=== PATIENT | female | born 1995 | race American Indian/Alaskan Native ===

== ENCOUNTER 2021-12-13 07:42 | Inpatient (IN) | payer OTHER ==
[2021-12-13 08:27] LABS: Bilirubin,Urine NEG (Negative); Blood,Urine LG (Negative); Color,Urine Straw (Yellow); Urobilinogen,Urine < 2.0 mg/dL (<2.0)
[2021-12-13 08:28] LABS: Mucus,Urine FEW /HPF
[2021-12-13] MEDS ORDERED: HYDROcodone/ACETAMINOPHEN 5-325 MG TAB PO ONE (15:01)
[2021-12-13] MEDS ORDERED: SODIUM CHLORIDE 0.9% 1000 ML 1,000 ML IV ONE ×3 (15:01→18:05)
[2021-12-13 15:59] LABS: Basophils # (Auto) 0.1 K/mm3 (0.0-0.1); Basophils % (Auto) 0.6 % (0.0-1.8); Eosinophils # (Auto) 0.1 K/mm3 (0.0-0.4); Eosinophils % (Auto) 1.3 % (0.0-4.3); Hematocrit 46.6 % (30.3-42.9); Hemoglobin 15.3 gm/dl (10.1-14.3); Lymphocytes # (Auto) 2.5 K/mm3 (1.2-5.4); Mean Corpuscular HGB Conc 33 % (30-34); Mean Corpuscular Volume 85 fl (79-97); Monocytes # (Auto) 0.6 K/mm3 (0.0-0.8); Monocytes % (Auto) 5.3 % (0.0-7.3); Platelet Count 280 K/mm3 (140-440); Red Blood Count 5.48 M/mm3 (3.65-5.03); Red Cell Distribution Width 12.9 % (13.2-15.2)
--- NOTE | 2021-12-13 16:18 | Emergency Department Report ---
ED General Adult HPI - General Chief complaint: Extremity Injury, Lower Stated complaint: CAN'T BEND LEG/ BLOOD IN URINE Time Seen by Provider: 12/13/21 15:01 Source: patient Mode of arrival: Ambulatory Limitations: No Limitations - History of Present Illness Initial comments: Patient presents with complaints of bilateral thigh pain x2 days. She states the pain began after an intense cycling workout. Ibuprofen is not helping with her pain. She rates the pain as a 7/10 in severity. No swelling of the legs or difficulty with breathing per patient. NKDA per patient. -: Sudden Severity scale (0 -10): 7 Consistency: constant Improves with: none Worsens with: movement Associated Symptoms: denies other symptoms - Related Data Allergies Allergy/AdvReac Type Severity Reaction Status Date / Time No Known Allergies Allergy Unverified 12/13/21 07:43 ED Review of Systems ROS: Stated complaint: CAN'T BEND LEG/ BLOOD IN URINE Other details as noted in HPI Constitutional: denies: chills, fever, malaise Respiratory: denies: cough, shortness of breath Cardiovascular: denies: chest pain Gastrointestinal: denies: abdominal pain Musculoskeletal: denies: joint swelling, arthralgia Skin: denies: rash, lesions, change in color Neurological: denies: numbness, paresthesias Hematological/Lymphatic: denies: swollen glands ED Past Medical Hx - Past Medical History Previous Medical History?: Yes Additional medical history: Umbilical hernia, right toe 5th digit bone spur - Surgical History Past Surgical History?: Yes Additional Surgical History: Umbilical hernia, Right toe 5th digit bone shaving ED Physical Exam - General Limitations: No Limitations General appearance: alert, in no apparent distress - Head Head exam: Present: atraumatic, normocephalic - Eye Eye exam: Present: normal appearance - Respiratory Respiratory exam: Present: normal lung sounds bilaterally. Absent: respiratory distress - Cardiovascular Cardiovascular Exam: Present: normal rhythm, tachycardia - Extremities Exam Extremities exam: Present: other (bilateral ttp to anterior thigh muscles witho ut swelling, erythema, or decreased sensation; ROMN is normal. Color is normal. Pedal pulses are normal) - Neurological Exam Neurological exam: Present: alert, oriented X3. Absent: normal gait (antalgic) - Psychiatric Psychiatric exam: Present: normal affect, normal mood - Skin Skin exam: Present: warm, dry, intact, normal color. Absent: rash ED Course Vital Signs 12/13/21 07:44 Temperature 99.6 F Pulse Rate 121 H Respiratory 20 Rate Blood Pressure 151/97 [Right] O2 Sat by Pulse 98 Oximetry ED Medical Decision Making - Lab Data Result diagrams: 12/13/21 15:16 12/13/21 15:16 Lab Results 12/13/21 12/13/21 12/13/21 Range/Units 15:16 15:16 Unknown WBC 10.8 (4.5-11.0) K/mm3 RBC 5.48 H (3.65-5.03) M/mm3 Hgb 15.3 H (10.1-14.3) gm/dl Hct 46.6 H (30.3-42.9) % MCV 85 (79-97) fl MCH 28 (28-32) pg MCHC 33 (30-34) % RDW 12.9 L (13.2-15.2) % Plt Count 280 (140-440) K/mm3 Lymph % (Auto) 23.0 (13.4-35.0) % [place] % (Auto) 5.3 (0.0-7.3) % Eos % (Auto) 1.3 (0.0-4.3) % Baso % (Auto) 0.6 (0.0-1.8) % Lymph # (Auto) 2.5 (1.2-5.4) K/mm3 [place] # (Auto) 0.6 (0.0-0.8) K/mm3 Eos # (Auto) 0.1 (0.0-0.4) K/mm3 Baso # (Auto) 0.1 (0.0-0.1) K/mm3 Seg Neutrophils % 69.8 (40.0-70.0) % Seg Neutrophils # 7.6 (1.8-7.7) K/mm3 Sodium 139 (137-145) mmol/L Potassium 4.3 (3.6-5.0) mmol/L Chloride 101.2 (98-107) mmol/L Carbon Dioxide 25 (22-30) mmol/L Anion Gap 17 mmol/L BUN 7 (7-17) mg/dL Creatinine 0.6 (0.6-1.2) mg/dL Estimated GFR > 60 ml/min BUN/Creatinine Ratio 12 % Glucose 84 (65-100) mg/dL Calcium 10.0 (8.4-10.2) mg/dL Total Bilirubin 0.30 (0.1-1.2) mg/dL AST 1707 H (5-40) units/L ALT 549 H (7-56) units/L Alkaline Phosphatase 79 (35-129) units/L Total Creatine Kinase 00144 H (30-135) units/L Total Protein 7.7 (6.3-8.2) g/dL Albumin 5.0 (3.9-5) g/dL Albumin/Globulin Ratio 1.9 % Urine Color Straw (Yellow) Urine Turbidity Clear (Clear) Urine pH 7.0 (5.0-7.0) Ur Specific [place] 1.001 L (1.003-1.030) Urine Protein 30 mg/dl (Negative) mg/dL Urine Glucose (UA) Neg (Negative) mg/dL Urine Ketones Neg (Negative) mg/dL Urine Blood Lg (Negative) Urine Nitrite Neg (Negative) Urine Bilirubin Neg (Negative) Urine Urobilinogen < 2.0 (<2.0) mg/dL Ur Leukocyte Esterase Neg (Negative) Urine WBC (Auto) 1.0 (0.0-6.0) /HPF Urine RBC (Auto) 1.0 (0.0-6.0) /HPF U Epithel Cells (Auto) < 1.0 (0-13.0) /HPF Urine Mucus Few /HPF - Medical Decision Making Patient presents with complaints of bilateral thigh pain x2 days. She states the pain began after an intense cycling workout. Ibuprofen is not helping with her pain. She rates the pain as a 7/10 in severity. No swelling of the legs or difficulty with breathing per patient. NKDA per patient. CK is elevated at approximately 78,000 and AST and ALT are significantly elevated. Patient denies any abdominal pain, Tylenol use, or alcohol use. She reports a history of minimal liver dysfunction and states she had an ultrasound performed that was normal last year of her liver. Patient was able to show me her labs and her AST and ALT were just mildly elevated. Patient given 1 L saline and [place] 5 mg. Heart rate improved to 92 on recheck. Discussed patient with Dr. Wu, [facility] who will admit for rhabdomyolysis. Critical care attestation.: If time is entered above; I have spent that time in minutes in the direct care of this critically ill patient, excluding procedure time. ED Disposition Clinical Impression: Rhabdomyolysis Disposition: 09 ADMITTED INPATIENT Is pt being admited?: Yes Condition: Stable Instructions: Rhabdomyolysis Referrals: KATY VALENTINO MD [Primary Care Provider] - 3-5 Days
[2021-12-13 16:19] LABS: Alanine Aminotransferase 549 units/L (7-56); Blood Urea Nitrogen 7 mg/dL (7-17); Hemolysis Index 5
[2021-12-13 16:20] LABS: BUN/Creatinine Ratio 12
[2021-12-13] MEDS ORDERED: HYDROmorphone 0.5 MG/0.5 ML INJ IV PRN (17:29)
[2021-12-13] MEDS ORDERED: oxyCODONE /ACETAMINOPHEN 5-325MG TAB PO PRN (17:29)
[2021-12-13] MEDS ORDERED: ONDANSETRON 4 MG/2 ML INJ IV PRN (17:29)
[2021-12-13] MEDS ORDERED: MORPHINE 2 MG/1 ML INJ IV PRN (17:29)
[2021-12-13] MEDS ORDERED: METOCLOPRAMIDE 10 MG/2 ML INJ IV PRN (17:29)
[2021-12-13] MEDS ORDERED: ACETAMINOPHEN 325 MG TAB PO PRN (17:29)
--- NOTE | 2021-12-13 17:47 | History and Physical Report ---
History of Present Illness Date of examination: 12/13/21 Date of admission: 12/13/2021 Chief complaint: Severe muscle pain both lower extremities for 3 days since 12/10/2021 History of present illness: 26-year-old female with no significant past medical history joined cycling class once weekly for 3 weeks. On her first day of cycling class which was Wednesday--12/09/2021--she underwent 45 minutes of intense cycling session. From the next day patient had pain in both the thighs which is worsened over the last 48 hours making it difficult to walk. Patient able to walk but unable to flex at the knees and also at the hips. Patient has tight anterior thigh muscles. Pain is about 6-7 on a scale of 1-10. Any movement is an exacerbating factor. Rest is a relieving factor. No shortness of breath. No discoloration of the both lower extremities. Thigh is swollen. - Past Medical History -- Umbilical hernia --right toe 5th digit bone spur - Surgical History --Umbilical hernia, --Right toe 5th digit bone shaving x-rays not -- Family history --unavailable -social history --does not smoke or use alcohol or drugs Review of Systems ROS: Constitutional severe muscle aches in both lower extremities and difficulty walking HEENT no sore throat no post nasal drip no diplopia Neck no neck stiffness no lymph gland enlargement Chest and lungs no shortness of breath cough or wheezing CVS no chest pain no diaphoresis no palpitations GI no nausea no vomiting no diarrhea Genitourinary system no dysuria no flank pain Musculoskeletal system severe muscle pains in both lower extremities especially anterior thighs and legs [employer] no syncope no seizures Skin no rash no itching Psychiatric no depression no homicidal or suicidal tendencies Hematologic no lymphedema or bruising Endocrine no polydipsia no polyuria no cold intolerance no heat intolerance Medications and Allergies Allergies Allergy/AdvReac Type Severity Reaction Status Date / Time No Known Allergies Allergy Unverified 12/13/21 07:43 Active Meds: Active Medications Sodium Chloride (Nacl 0.9% 1000 Ml) 1,000 mls @ 999 mls/hr IV BOLUS ONE Stop: 12/13/21 17:58 Exam - Constitutional Vitals: Temp Pulse Resp BP Pulse Ox 99.6 F 121 H 20 151/97 98 12/13/21 07:44 12/13/21 07:44 12/13/21 07:44 12/13/21 07:44 12/13/21 07:44 General appearance: Present: no acute distress, well-nourished - EENT Eyes: Present: PERRL ENT: hearing intact, clear oral mucosa - Neck Neck: Present: supple, normal ROM - Respiratory Respiratory effort: normal Respiratory: bilateral: CTA - Cardiovascular Heart rate: 121 Rhythm: regular Heart Sounds: Present: S1 & S2. Absent: rub, click - Extremities Extremities: no ischemia, pulses intact, pulses symmetrical, No edema, abnormal (Tenderness present over both the thighs) Extremity abnormal: tenderness (Tenderness over both anterior thighs), other (Able to get up and walk but slowly) Peripheral Pulses: within normal limits - Abdominal General gastrointestinal: Present: soft, non-tender, non-distended, normal bowel sounds Female genitourinary: Present: normal - Integumentary Integumentary: Present: clear, warm, dry - Musculoskeletal Musculoskeletal: gait normal, strength equal bilaterally - Psychiatric Psychiatric: appropriate mood/affect, intact judgment & insight - Neurologic Neurologic: CNII-XII intact, moves all extremities - Allied Health Allied health notes reviewed: nursing, case management Results - Labs CBC & Chem 7: 12/13/21 15:16 12/13/21 15:16 Labs: Laboratory Last Values WBC 10.8 K/mm3 (4.5-11.0) 12/13/21 15:16 RBC 5.48 M/mm3 (3.65-5.03) H 12/13/21 15:16 Hgb 15.3 gm/dl (10.1-14.3) H 12/13/21 15:16 Hct 46.6 % (30.3-42.9) H 12/13/21 15:16 MCV 85 fl (79-97) 12/13/21 15:16 MCH 28 pg (28-32) 12/13/21 15:16 MCHC 33 % (30-34) 12/13/21 15:16 RDW 12.9 % (13.2-15.2) L 12/13/21 15:16 Plt Count 280 K/mm3 (140-440) 12/13/21 15:16 Lymph % (Auto) 23.0 % (13.4-35.0) 12/13/21 15:16 [place] % (Auto) 5.3 % (0.0-7.3) 12/13/21 15:16 Eos % (Auto) 1.3 % (0.0-4.3) 12/13/21 15:16 Baso % (Auto) 0.6 % (0.0-1.8) 12/13/21 15:16 Lymph # (Auto) 2.5 K/mm3 (1.2-5.4) 12/13/21 15:16 [place] # (Auto) 0.6 K/mm3 (0.0-0.8) 12/13/21 15:16 Eos # (Auto) 0.1 K/mm3 (0.0-0.4) 12/13/21 15:16 Baso # (Auto) 0.1 K/mm3 (0.0-0.1) 12/13/21 15:16 Seg Neutrophils % 69.8 % (40.0-70.0) 12/13/21 15:16 Seg Neutrophils # 7.6 K/mm3 (1.8-7.7) 12/13/21 15:16 Sodium 139 mmol/L (137-145) 12/13/21 15:16 Potassium 4.3 mmol/L (3.6-5.0) 12/13/21 15:16 Chloride 101.2 mmol/L (98-107) 12/13/21 15:16 Carbon Dioxide 25 mmol/L (22-30) 12/13/21 15:16 Anion Gap 17 mmol/L 12/13/21 15:16 BUN 7 mg/dL (7-17) 12/13/21 15:16 Creatinine 0.6 mg/dL (0.6-1.2) 12/13/21 15:16 Estimated GFR > 60 ml/min 12/13/21 15:16 BUN/Creatinine Ratio 12 % 12/13/21 15:16 Glucose 84 mg/dL (65-100) 12/13/21 15:16 Calcium 10.0 mg/dL (8.4-10.2) 12/13/21 15:16 Total Bilirubin 0.30 mg/dL (0.1-1.2) 12/13/21 15:16 AST 1707 units/L (5-40) H 12/13/21 15:16 ALT 549 units/L (7-56) H 12/13/21 15:16 Alkaline Phosphatase 79 units/L (35-129) 12/13/21 15:16 Total Creatine Kinase 04258 units/L (30-135) H 12/13/21 15:16 Total Protein 7.7 g/dL (6.3-8.2) 12/13/21 15:16 Albumin 5.0 g/dL (3.9-5) 12/13/21 15:16 Albumin/Globulin Ratio 1.9 % 12/13/21 15:16 Urine Color Straw (Yellow) 12/13/21 Unknown Urine Turbidity Clear (Clear) 12/13/21 Unknown Urine pH 7.0 (5.0-7.0) 12/13/21 Unknown Ur Specific [place] 1.001 (1.003-1.030) L 12/13/21 Unknown Urine Protein 30 mg/dl mg/dL (Negative) 12/13/21 Unknown Urine Glucose (UA) Neg mg/dL (Negative) 12/13/21 Unknown Urine Ketones Neg mg/dL (Negative) 12/13/21 Unknown Urine Blood Lg (Negative) 12/13/21 Unknown Urine Nitrite Neg (Negative) 12/13/21 Unknown Urine Bilirubin Neg (Negative) 12/13/21 Unknown Urine Urobilinogen < 2.0 mg/dL (<2.0) 12/13/21 Unknown Ur Leukocyte Esterase Neg (Negative) 12/13/21 Unknown Urine WBC (Auto) 1.0 /HPF (0.0-6.0) 12/13/21 Unknown Urine RBC (Auto) 1.0 /HPF (0.0-6.0) 12/13/21 Unknown U Epithel Cells (Auto) < 1.0 /HPF (0-13.0) 12/13/21 Unknown Urine Mucus Few /HPF 12/13/21 Unknown Short CBC 12/13/21 Range/Units 15:16 WBC 10.8 (4.5-11.0) K/mm3 Hgb 15.3 H (10.1-14.3) gm/dl Hct 46.6 H (30.3-42.9) % Plt Count 280 (140-440) K/mm3 BMP 12/13/21 15:16 Sodium 139 Potassium 4.3 Chloride 101.2 Carbon Dioxide 25 BUN 7 Creatinine 0.6 Glucose 84 Calcium 10.0 Cardiac Enzymes 12/13/21 Range/Units 15:16 Total Creatine Kinase 01187 H (30-135) units/L Liver Function 12/13/21 Range/Units 15:16 Total Bilirubin 0.30 (0.1-1.2) mg/dL AST 1707 H (5-40) units/L ALT 549 H (7-56) units/L Alkaline Phosphatase 79 (35-129) units/L Albumin 5.0 (3.9-5) g/dL Urine 12/13/21 Range/Units Unknown Urine Color Straw (Yellow) Urine pH 7.0 (5.0-7.0) Ur Specific [place] 1.001 L (1.003-1.030) Urine Protein 30 mg/dl (Negative) mg/dL Urine Glucose (UA) Neg (Negative) mg/dL Assessment and Plan Advance Directives: Yes (Full code) VTE prophylaxis?: Chemical Plan of care discussed with patient/family: Yes - Patient Problems (1) Rhabdomyolysis Current Visit: Yes Status: Acute Qualifiers: Rhabdomyolysis type: traumatic Encounter type: initial encounter Qualified Code(s): T79.6XXA - Traumatic ischemia of muscle, initial encounter Plan to address problem: Patient did excessive cycling for the first time on 12/09/2021 Cycling classes was there for 45 minutes and was pushed to the limit on the day 1 itself (2) Transaminitis Current Visit: Yes Status: Acute Plan to address problem: Will get acute hepatitis profile Hep A, B and C, are not expected in this patient Sometimes transaminases are elevated in rhabdomyolysis AST is elevated in 95% of the rhabdomyolysis patient's ALT is elevated in 73% of the patient's (3) Polycythemia due to fall in plasma volume Current Visit: Yes Status: Acute Plan to address problem: Higher hemoglobin and hematocrit secondary to fall in plasma volume IV fluids for now Recheck hemoglobin and hematocrit tomorrow morning (4) DVT prophylaxis Current Visit: Yes Status: Acute Plan to address problem: On anticoagulation GI prophylaxis (5) Advance care planning Current Visit: Yes Status: Acute Plan to address problem: And disease education conducted care plan discussed diagnosis discussed prognosis discussed patient acknowledges understanding and agrees with care plan. +30 minutes
[2021-12-13] MEDS: SODIUM BICARB 8.4% 50 MEQ/50 ML SYRINGE IV SCH (20:23)
[2021-12-13] MEDS: HEPARIN 5,000 UNIT/1 ML VIAL SUB-Q SCH (23:22)
[2021-12-14] MEDS: D5W/0.9% NACL 1,000 ML IV SCH ×4 (03:07→19:53)
[2021-12-14] MEDS: SODIUM BICARB 8.4% 50 MEQ/50 ML SYRINGE IV SCH ×3 (03:39→19:49)
[2021-12-14 05:52] LABS: Basophils # (Auto) 0.1 K/mm3 (0.0-0.1); Basophils % (Auto) 0.9 % (0.0-1.8); Eosinophils # (Auto) 0.2 K/mm3 (0.0-0.4); Eosinophils % (Auto) 2.1 % (0.0-4.3); Hematocrit 39.8 % (30.3-42.9); Hemoglobin 13.4 gm/dl (10.1-14.3); Lymphocytes % (Auto) 32.1 % (13.4-35.0); Mean Corpuscular HGB Conc 34 % (30-34); Mean Corpuscular Volume 84 fl (79-97); Monocytes # (Auto) 0.4 K/mm3 (0.0-0.8); Monocytes % (Auto) 4.8 % (0.0-7.3); Platelet Count 230 K/mm3 (140-440); Red Blood Count 4.76 M/mm3 (3.65-5.03); Red Cell Distribution Width 12.9 % (13.2-15.2)
[2021-12-14 06:20] LABS: Alanine Aminotransferase 473 units/L (7-56); Albumin 3.6 g/dL (3.9-5); Blood Urea Nitrogen 5 mg/dL (7-17); Calcium 8.8 mg/dL (8.4-10.2); Hemolysis Index 4
[2021-12-14 06:28] LABS: BUN/Creatinine Ratio 10
--- NOTE | 2021-12-14 08:10 | Progress Note ---
Assessment and Plan Assessment and plan: -- Severe rhabdomyolysis; Patient did excessive cycling for the first time on 12/09/2021 Cycling classes was there for 45 minutes and was pushed to the limit on the day 1 itself Vigorous IV hydration, monitor renal function, monitor LFTs Nephrology consult, plenty of oral fluids --Acute Transaminitis/liver failure CK 78,[id number][today] Trend liver function tests AST 1707--1556 Continue supportive care, consult GI Check abdominal ultrasound Due to severe rhabdomyolysis Check acute hepatitis profile Closely monitor transaminases Check abdominal ultrasound GI consulted, informed Dr. Aguayo --Polycythemia due to hemoconcentration Resolved --DVT prophylaxis Subcu heparin We will closely monitor the patient and adjust the management as needed Plan of care reviewed with the patient and nurse --Advance care planning And disease education conducted care plan discussed diagnosis discussed prognosis discussed patient acknowledges understanding and agrees with care plan. +30 minutes 26-year-old female patient with no significant past medical history joined cycling class had a rigorous training on 12/09/2021 Patient has severe muscle pain both lower extremities for more than 3 days also complains of difficulty walking and tight anterior thigh muscles initial work-up shows severe rhabdomyolysis with very high CK levels as well as severe transaminitis patient is on vigorous IV hydration closely monitoring renal fun ction 12/14/2021; patient has severe rhabdomyolysis with CK of 100,000s, History Interval history: Seen and examined the patient at the bedside Patient's chart and medications reviewed Patient complains of general leg muscle pain Denies nausea vomitin, denies chest pain Vital signs reviewed Hospitalist Physical - Constitutional Vitals: Temp Pulse Resp BP Pulse Ox 98.4 F 83 12 133/89 100 12/14/21 03:00 12/14/21 03:17 12/14/21 03:17 12/14/21 03:17 12/14/21 03:17 General appearance: Present: no acute distress, well-nourished - EENT Eyes: Present: PERRL, EOM intact - Neck Neck: Present: supple, normal ROM - Respiratory Respiratory effort: normal Respiratory: bilateral: diminished, negative: rales, rhonchi, wheezing - Cardiovascular Rhythm: regular Heart Sounds: Present: S1 & S2 - Extremities Extremities: no ischemia, No edema - Abdominal General gastrointestinal: soft, non-tender, non-distended, normal bowel sounds - Integumentary Integumentary: Present: clear, warm - Psychiatric Psychiatric: appropriate mood/affect, cooperative - Neurologic Neurologic: CNII-XII intact, moves all extremities Results - Labs CBC & Chem 7: 12/14/21 05:16 12/14/21 05:16 Labs: Laboratory Last Values WBC 9.2 K/mm3 (4.5-11.0) 12/14/21 05:16 RBC 4.76 M/mm3 (3.65-5.03) 12/14/21 05:16 Hgb 13.4 gm/dl (10.1-14.3) 12/14/21 05:16 Hct 39.8 % (30.3-42.9) D 12/14/21 05:16 MCV 84 fl (79-97) 12/14/21 05:16 MCH 28 pg (28-32) 12/14/21 05:16 MCHC 34 % (30-34) 12/14/21 05:16 RDW 12.9 % (13.2-15.2) L 12/14/21 05:16 Plt Count 230 K/mm3 (140-440) 12/14/21 05:16 Lymph % (Auto) 32.1 % (13.4-35.0) 12/14/21 05:16 [place] % (Auto) 4.8 % (0.0-7.3) 12/14/21 05:16 Eos % (Auto) 2.1 % (0.0-4.3) 12/14/21 05:16 Baso % (Auto) 0.9 % (0.0-1.8) 12/14/21 05:16 Lymph # (Auto) 3.0 K/mm3 (1.2-5.4) 12/14/21 05:16 [place] # (Auto) 0.4 K/mm3 (0.0-0.8) 12/14/21 05:16 Eos # (Auto) 0.2 K/mm3 (0.0-0.4) 12/14/21 05:16 Baso # (Auto) 0.1 K/mm3 (0.0-0.1) 12/14/21 05:16 Seg Neutrophils % 60.1 % (40.0-70.0) 12/14/21 05:16 Seg Neutrophils # 5.5 K/mm3 (1.8-7.7) 12/14/21 05:16 Sodium 140 mmol/L (137-145) 12/14/21 05:16 Potassium 3.8 mmol/L (3.6-5.0) 12/14/21 05:16 Chloride 103.5 mmol/L (98-107) 12/14/21 05:16 Carbon Dioxide 26 mmol/L (22-30) 12/14/21 05:16 Anion Gap 14 mmol/L 12/14/21 05:16 BUN 5 mg/dL (7-17) L 12/14/21 05:16 Creatinine 0.5 mg/dL (0.6-1.2) L 12/14/21 05:16 Estimated GFR > 60 ml/min 12/14/21 05:16 BUN/Creatinine Ratio 10 % 12/14/21 05:16 Glucose 122 mg/dL (65-100) H 12/14/21 05:16 Calcium 8.8 mg/dL (8.4-10.2) 12/14/21 05:16 Total Bilirubin 0.20 mg/dL (0.1-1.2) 12/14/21 05:16 AST 1556 units/L (5-40) H 12/14/21 05:16 ALT 473 units/L (7-56) H 12/14/21 05:16 Alkaline Phosphatase 60 units/L (35-129) 12/14/21 05:16 Total Creatine Kinase 833684 units/L (30-135) H 12/14/21 05:16 Total Protein 6.4 g/dL (6.3-8.2) 12/14/21 05:16 Albumin 3.6 g/dL (3.9-5) L 12/14/21 05:16 Albumin/Globulin Ratio 1.3 % 12/14/21 05:16 Urine Color Straw (Yellow) 12/13/21 Unknown Urine Turbidity Clear (Clear) 12/13/21 Unknown Urine pH 7.0 (5.0-7.0) 12/13/21 Unknown Ur Specific [place] 1.001 (1.003-1.030) L 12/13/21 Unknown Urine Protein 30 mg/dl mg/dL (Negative) 12/13/21 Unknown Urine Glucose (UA) Neg mg/dL (Negative) 12/13/21 Unknown Urine Ketones Neg mg/dL (Negative) 12/13/21 Unknown Urine Blood Lg (Negative) 12/13/21 Unknown Urine Nitrite Neg (Negative) 12/13/21 Unknown Urine Bilirubin Neg (Negative) 12/13/21 Unknown Urine Urobilinogen < 2.0 mg/dL (<2.0) 12/13/21 Unknown Ur Leukocyte Esterase Neg (Negative) 12/13/21 Unknown Urine WBC (Auto) 1.0 /HPF (0.0-6.0) 12/13/21 Unknown Urine RBC (Auto) 1.0 /HPF (0.0-6.0) 12/13/21 Unknown U Epithel Cells (Auto) < 1.0 /HPF (0-13.0) 12/13/21 Unknown Urine Mucus Few /HPF 12/13/21 Unknown [place]/IV: Voiding Method Toilet Active Medications - Current Medications Current Medications: Generic Name Dose Route Start Last Admin Trade Name Freq PRN Reason Stop Dose Admin Acetaminophen 650 mg 12/13/21 17:29 12/14/21 07:09 Acetaminophen 325 Mg Tab PO 650 mg Q4H PRN Administration Pain MILD(1-3)/Fever >100.5/[place] Furosemide 40 mg 12/14/21 20:00 Furosemide 40 Mg/4 Ml Inj IV 0600,1800 ERNESTO Heparin Sodium (Porcine) 5,000 unit 12/13/21 22:00 12/13/21 23:22 Heparin 5,000 Unit/1 Ml Vial SUB-Q 5,000 unit Q12HR ERNESTO Administration Hydromorphone HCl 0.5 mg 12/13/21 17:29 Hydromorphone 0.5 Mg/0.5 Ml Inj IV Q3H PRN Pain , Severe (7-10) Dextrose/Sodium Chloride 1,000 mls @ 200 mls/hr 12/13/21 18:00 12/14/21 07:10 D5ns IV 200 mls/hr DIRECT ERNESTO Administration Metoclopramide HCl 10 mg 12/13/21 17:29 Metoclopramide 10 Mg/2 Ml Inj IV Q6H PRN Nausea And Vomiting Morphine Sulfate 2 mg 12/13/21 17:29 Morphine 2 Mg/1 Ml Inj IV Q4H PRN Pain, Moderate (4-6) Ondansetron HCl 4 mg 12/13/21 17:29 Ondansetron 4 Mg/2 Ml Inj IV Q3H PRN Nausea And Vomiting Oxycodone/Acetaminophen 1 tab 12/13/21 17:29 Oxycodone /Acetaminophen 5-325mg Tab PO Q6H PRN Pain, Moderate (4-6) Sodium Bicarbonate 50 meq 12/13/21 19:00 12/14/21 03:39 Sodium Bicarb 8.4% 50 Meq/50 Ml Syringe IV 12/15/21 11:01 50 meq Q8H ERNESTO Administration Sodium Chloride 10 ml 12/13/21 22:00 12/13/21 22:00 Sodium Chloride 0.9% 10 Ml Flush Syringe IV 10 ml BID ERNESTO Administration Sodium Chloride 10 ml 12/13/21 17:29 12/14/21 03:07 Sodium Chloride 0.9% 10 Ml Flush Syringe IV 10 ml PRN PRN Administration LINE FLUSH
[2021-12-14] MEDS: HEPARIN 5,000 UNIT/1 ML VIAL SUB-Q SCH ×2 (09:53→21:36)
--- NOTE | 2021-12-14 10:50 | Consultation ---
History of Present Illness - Reason for Consult Consult date: 12/14/21 other (Rhabdomyolysis) Requesting physician: JAMIA STEWART - History of Present Illness This is a 26 yo F with no significant past medical history who presents to ER with dark colored urine and b/l thigh pain. Patient states that she joined cycling class and on her first session on 12/09/2021 she underwent 45 minutes of intense cycling session. Since then she experienced pain in both the thighs which is worsened over the last 48 hours making it difficult to walk. Patient able to walk but unable to flex at the knees and also at the hips. Patient denies fever, chills, n/v/d, CP, SOB, abd pain. Labs showed significantly elevated CPK > 100K along with elevated LFTs, UA showed large blood. Patient was admitted for treatment of acute rhabdomyolysis. Past History Past Medical History: No medical history Past Surgical History: No surgical history Social history: no significant social history Family history: no significant family history Medications and Allergies Allergies Allergy/AdvReac Type Severity Reaction Status Date / Time No Known Allergies Allergy Unverified 12/13/21 07:43 Home Medications Medication Instructions Recorded Confirmed Last Taken Type Norethindrone-E.estradiol-Iron DAILY 12/14/21 1 Day Ago History [Junel Fe 1 mg-20 Mcg Tablet] ~12/13/21 Active Meds: Active Medications Acetaminophen (Acetaminophen 325 Mg Tab) 650 mg PO Q4H PRN PRN Reason: Pain MILD(1-3)/Fever >100.5/[place] Last Admin: 12/14/21 07:09 Dose: 650 mg Furosemide (Furosemide 40 Mg/4 Ml Inj) 40 mg IV 0600,1800 COUNTS INCLUDE 234 BEDS AT THE [facility] Heparin Sodium (Porcine) (Heparin 5,000 Unit/1 Ml Vial) 5,000 unit SUB-Q Q12HR COUNTS INCLUDE 234 BEDS AT THE [facility] Last Admin: 12/14/21 09:53 Dose: 5,000 unit Hydromorphone HCl (Hydromorphone 0.5 Mg/0.5 Ml Inj) 0.5 mg IV Q3H PRN PRN Reason: Pain , Severe (7-10) Dextrose/Sodium Chloride (D5ns) 1,000 mls @ 200 mls/hr IV DIRECT ERNESTO Last Admin: 12/14/21 07:10 Dose: 200 mls/hr Metoclopramide HCl (Metoclopramide 10 Mg/2 Ml Inj) 10 mg IV Q6H PRN PRN Reason: Nausea And Vomiting Morphine Sulfate (Morphine 2 Mg/1 Ml Inj) 2 mg IV Q4H PRN PRN Reason: Pain, Moderate (4-6) Ondansetron HCl (Ondansetron 4 Mg/2 Ml Inj) 4 mg IV Q3H PRN PRN Reason: Nausea And Vomiting Oxycodone/Acetaminophen (Oxycodone /Acetaminophen 5-325mg Tab) 1 tab PO Q6H PRN PRN Reason: Pain, Moderate (4-6) Sodium Bicarbonate (Sodium Bicarb 8.4% 50 Meq/50 Ml Syringe) 50 meq IV Q8H COUNTS INCLUDE 234 BEDS AT THE [facility] Stop: 12/15/21 11:01 Last Admin: 12/14/21 03:39 Dose: 50 meq Sodium Chloride (Sodium Chloride 0.9% 10 Ml Flush Syringe) 10 ml IV BID COUNTS INCLUDE 234 BEDS AT THE [facility] Last Admin: 12/14/21 09:55 Dose: 10 ml Sodium Chloride (Sodium Chloride 0.9% 10 Ml Flush Syringe) 10 ml IV PRN PRN PRN Reason: LINE FLUSH Last Admin: 12/14/21 03:07 Dose: 10 ml Review of Systems All systems: negative Constitutional: fatigue, weakness, other (b/l thigh pain ) Exam - Vital Signs Vital signs: Vital Signs Temp Pulse Resp BP Pulse Ox 99.6 F 121 H 20 151/97 98 12/13/21 07:44 12/13/21 07:44 12/13/21 07:44 12/13/21 07:44 12/13/21 07:44 - General Appearance General appearance: well-developed, well-nourished, appears stated age EENT: ATNC, PERRL, mucous membranes moist Neck: Present: neck supple Respiratory: Clear to Ascultation Heart: regular, S1S2 Gastrointestinal: Present: normoactive bowel sounds Integumentary: no rash Neurologic: no focal deficit, alert and oriented x3, strength 5/5, CN 3-12 intact Psychiatric: mood/affect appropriate, cooperative Results - Lab Results 12/14/21 05:16 12/14/21 05:16 Most recent lab results Calcium 8.8 mg/dL (8.4-10.2) 12/14/21 05:16 Assessment and Plan - Patient Problems (1) Rhabdomyolysis Current Visit: Yes Status: Acute Qualifiers: Rhabdomyolysis type: traumatic Encounter type: initial encounter Qualified Code(s): T79.6XXA - Traumatic ischemia of muscle, initial encounter Plan to address problem: Cont aggressive IVF with NS with 200ml/min. trend serial CPK level. Renal function remains stable at this time, however at increased risk for CAROLANN due severe elevation of CPK. Will monitor lytes/CPK, renal parameters closely and make further recommendations. (2) Transaminitis Current Visit: Yes Status: Acute Plan to address problem: 2/2 acute rhabdomyolysis. trend LFTs on IVF
[2021-12-14 12:35] LABS: Hepatitis B Surface Antigen Non-Reactive (Negative); Hepatitis C Virus Antibody Non-Reactive (NonReactive)
--- NOTE | 2021-12-14 16:22 | Ultrasound Report ---
ULTRASOUND ABDOMEN, COMPLETE INDICATION: Severe transforaminal at this/liver failure. COMPARISON: No relevant prior imaging study available. FINDINGS: Pancreas: No significant abnormality. Abdominal Aorta: Normal size. IVC: No significant abnormality. Liver: The liver measures 13.4 cm in length. Echogenic appearance of the liver with no focal mass. N ormal hepatopedal blood flow in the main portal vein. Gallbladder: No significant abnormality. Bile ducts: No significant abnormality. Common bile duct measures 2 mm. Kidneys: Right: 9.5 cm in length. Increased cortical echogenicity. Left: 9.1 cm in length. Increa sed cortical echogenicity. Spleen: No significant abnormality. Free fluid: None. Additional Findings: None. IMPRESSION: 1. No acute sonographic abnormality of the abdomen. 2. Echogenic appearance of the kidneys, often seen with medical renal disease. 3. Echogenic appearance of the liver can be seen in the setting of steatosis or hepatitis among other etiologies. Signer Name: Ibrahima Fowler MD Signed: 12/14/2021 4:17 PM Workstation Name: [id number]
--- NOTE | 2021-12-14 16:50 | Progress Note ---
Assessment and Plan Assessment and plan: -- Severe rhabdomyolysis; Patient did excessive cycling for the first time on 12/09/2021 Cycling classes was there for 45 minutes and was pushed to the limit on the day 1 itself Vigorous IV hydration, monitor renal function, monitor LFTs Nephrology consult, plenty of oral fluids --Acute Transaminitis/liver failure CK 78,[id number][today] Trend liver function tests AST 1707--1556 Continue supportive care, consult GI Check abdominal ultrasound Due to severe rhabdomyolysis Check acute hepatitis profile Closely monitor transaminases Check abdominal ultrasound GI consulted, informed Dr. Aguayo --Polycythemia due to hemoconcentration Resolved --DVT prophylaxis Subcu heparin We will closely monitor the patient and adjust the management as needed Plan of care reviewed with the patient and nurse --Advance care planning And disease education conducted care plan discussed diagnosis discussed prognosis discussed patient acknowledges understanding and agrees with care plan. +30 minutes 26-year-old female patient with no significant past medical history was not cycling class training and suddenly developed severe muscle pain both lower extremities of 3 days duration patient was initially evaluated noted to have severe rhabdomyolysis and severe liver failure. 12/15; patient CK levels 102,000, and transaminases slightly trending down Disposition closely monitor discharge when medically stable History Interval history: I have seen and examined the patient at the bedside Patient's chart and medications reviewed Patient has worsening rhabdomyolysis with increasing CK Patient complains of vague generalized body pains Vital signs noted Hospitalist Physical - Constitutional Vitals: Temp Pulse Resp BP Pulse Ox 98.8 F 88 18 116/81 100 12/14/21 12:40 12/14/21 12:40 12/14/21 12:40 12/14/21 12:40 12/14/21 12:40 General appearance: Present: no acute distress, well-nourished - EENT Eyes: Present: PERRL, EOM intact - Neck Neck: Present: supple, normal ROM - Respiratory Respiratory effort: normal Respiratory: bilateral: diminished, negative: rales, rhonchi, wheezing - Cardiovascular Rhythm: regular Heart Sounds: Present: S1 & S2 - Extremities Extremities: no ischemia, No edema - Abdominal General gastrointestinal: soft, non-tender, non-distended, normal bowel sounds - Integumentary Integumentary: Present: clear, warm - Psychiatric Psychiatric: appropriate mood/affect, cooperative - Neurologic Neurologic: CNII-XII intact, moves all extremities Results - Labs CBC & Chem 7: 12/14/21 05:16 12/15/21 04:36 Labs: Laboratory Last Values WBC 9.2 K/mm3 (4.5-11.0) 12/14/21 05:16 RBC 4.76 M/mm3 (3.65-5.03) 12/14/21 05:16 Hgb 13.4 gm/dl (10.1-14.3) 12/14/21 05:16 Hct 39.8 % (30.3-42.9) D 12/14/21 05:16 MCV 84 fl (79-97) 12/14/21 05:16 MCH 28 pg (28-32) 12/14/21 05:16 MCHC 34 % (30-34) 12/14/21 05:16 RDW 12.9 % (13.2-15.2) L 12/14/21 05:16 Plt Count 230 K/mm3 (140-440) 12/14/21 05:16 Lymph % (Auto) 32.1 % (13.4-35.0) 12/14/21 05:16 Island % (Auto) 4.8 % (0.0-7.3) 12/14/21 05:16 Eos % (Auto) 2.1 % (0.0-4.3) 12/14/21 05:16 Baso % (Auto) 0.9 % (0.0-1.8) 12/14/21 05:16 Lymph # (Auto) 3.0 K/mm3 (1.2-5.4) 12/14/21 05:16 Island # (Auto) 0.4 K/mm3 (0.0-0.8) 12/14/21 05:16 Eos # (Auto) 0.2 K/mm3 (0.0-0.4) 12/14/21 05:16 Baso # (Auto) 0.1 K/mm3 (0.0-0.1) 12/14/21 05:16 Seg Neutrophils % 60.1 % (40.0-70.0) 12/14/21 05:16 Seg Neutrophils # 5.5 K/mm3 (1.8-7.7) 12/14/21 05:16 Sodium 140 mmol/L (137-145) 12/14/21 05:16 Potassium 3.8 mmol/L (3.6-5.0) 12/14/21 05:16 Chloride 103.5 mmol/L (98-107) 12/14/21 05:16 Carbon Dioxide 26 mmol/L (22-30) 12/14/21 05:16 Anion Gap 14 mmol/L 12/14/21 05:16 BUN 5 mg/dL (7-17) L 12/14/21 05:16 Creatinine 0.5 mg/dL (0.6-1.2) L 12/14/21 05:16 Estimated GFR > 60 ml/min 12/14/21 05:16 BUN/Creatinine Ratio 10 % 12/14/21 05:16 Glucose 122 mg/dL (65-100) H 12/14/21 05:16 Calcium 8.8 mg/dL (8.4-10.2) 12/14/21 05:16 Total Bilirubin 0.20 mg/dL (0.1-1.2) 12/14/21 05:16 AST 1556 units/L (5-40) H 12/14/21 05:16 ALT 473 units/L (7-56) H 12/14/21 05:16 Alkaline Phosphatase 60 units/L (35-129) 12/14/21 05:16 Total Creatine Kinase 484681 units/L (30-135) H 12/14/21 05:16 Total Protein 6.4 g/dL (6.3-8.2) 12/14/21 05:16 Albumin 3.6 g/dL (3.9-5) L 12/14/21 05:16 Albumin/Globulin Ratio 1.3 % 12/14/21 05:16 Urine Color Straw (Yellow) 12/13/21 Unknown Urine Turbidity Clear (Clear) 12/13/21 Unknown Urine pH 7.0 (5.0-7.0) 12/13/21 Unknown Ur Specific Gerber 1.001 (1.003-1.030) L 12/13/21 Unknown Urine Protein 30 mg/dl mg/dL (Negative) 12/13/21 Unknown Urine Glucose (UA) Neg mg/dL (Negative) 12/13/21 Unknown Urine Ketones Neg mg/dL (Negative) 12/13/21 Unknown Urine Blood Lg (Negative) 12/13/21 Unknown Urine Nitrite Neg (Negative) 12/13/21 Unknown Urine Bilirubin Neg (Negative) 12/13/21 Unknown Urine Urobilinogen < 2.0 mg/dL (<2.0) 12/13/21 Unknown Ur Leukocyte Esterase Neg (Negative) 12/13/21 Unknown Urine WBC (Auto) 1.0 /HPF (0.0-6.0) 12/13/21 Unknown Urine RBC (Auto) 1.0 /HPF (0.0-6.0) 12/13/21 Unknown U Epithel Cells (Auto) < 1.0 /HPF (0-13.0) 12/13/21 Unknown Urine Mucus Few /HPF 12/13/21 Unknown Hepatitis A IgM Ab Non-reactive (NonReactive) 12/14/21 11:41 Hep Bs Antigen Non-reactive (Negative) 12/14/21 11:41 Hep B Core IgM Ab Non-reactive (NonReactive) 12/14/21 11:41 Hepatitis C Antibody Non-reactive (NonReactive) 12/14/21 11:41 [place]/IV: Voiding Method Toilet Active Medications - Current Medications Current Medications: Generic Name Dose Route Start Last Admin Trade Name Freq PRN Reason Stop Dose Admin Acetaminophen 650 mg 12/13/21 17:29 12/14/21 07:09 Acetaminophen 325 Mg Tab PO 650 mg Q4H PRN Administration Pain MILD(1-3)/Fever >100.5/[place] Furosemide 40 mg 12/14/21 20:00 Furosemide 40 Mg/4 Ml Inj IV 0600,1800 ERNESTO Heparin Sodium (Porcine) 5,000 unit 12/13/21 22:00 12/14/21 09:53 Heparin 5,000 Unit/1 Ml Vial SUB-Q 5,000 unit Q12HR ERNESTO Administration Hydromorphone HCl 0.5 mg 12/13/21 17:29 Hydromorphone 0.5 Mg/0.5 Ml Inj IV Q3H PRN Pain , Severe (7-10) Dextrose/Sodium Chloride 1,000 mls @ 200 mls/hr 12/13/21 18:00 12/14/21 15:32 D5ns IV 200 mls/hr DIRECT ERNESTO Administration Metoclopramide HCl 10 mg 12/13/21 17:29 Metoclopramide 10 Mg/2 Ml Inj IV Q6H PRN Nausea And Vomiting Morphine Sulfate 2 mg 12/13/21 17:29 Morphine 2 Mg/1 Ml Inj IV Q4H PRN Pain, Moderate (4-6) Ondansetron HCl 4 mg 12/13/21 17:29 Ondansetron 4 Mg/2 Ml Inj IV Q3H PRN Nausea And Vomiting Oxycodone/Acetaminophen 1 tab 12/13/21 17:29 Oxycodone /Acetaminophen 5-325mg Tab PO Q6H PRN Pain, Moderate (4-6) Sodium Bicarbonate 50 meq 12/13/21 19:00 12/14/21 12:30 Sodium Bicarb 8.4% 50 Meq/50 Ml Syringe IV 12/15/21 11:01 50 meq Q8H ERNESTO Administration Sodium Chloride 10 ml 12/13/21 22:00 12/14/21 09:55 Sodium Chloride 0.9% 10 Ml Flush Syringe IV 10 ml BID ERNESTO Administration Sodium Chloride 10 ml 12/13/21 17:29 12/14/21 03:07 Sodium Chloride 0.9% 10 Ml Flush Syringe IV 10 ml PRN PRN Administration LINE FLUSH
[2021-12-14] MEDS: FUROSEMIDE 40 MG/4 ML INJ IV SCH (21:35)
[2021-12-15] MEDS: D5W/0.9% NACL 1,000 ML IV SCH ×5 (00:42→18:28)
[2021-12-15] MEDS: SODIUM BICARB 8.4% 50 MEQ/50 ML SYRINGE IV SCH ×2 (03:15→10:13)
--- NOTE | 2021-12-15 03:51 | Consultation ---
DATE OF CONSULTATION: 12/14/2021 REFERRING PHYSICIAN: Annie Duque MD INDICATION: Increased liver function tests. HISTORY OF PRESENT ILLNESS: The patient is a 26-year-old black female who recently had a strenuous workout and now develops increased liver function tests. The patient reports after recent second test, she started having multiple muscle discomfort. The patient reports weak and dizziness. She subsequently came to the Emergency Room. Evaluation showed a very high CK level consistent with rhabdomyolysis. The patient also had increased liver function tests. She was admitted and GI consulted to aid in management. The patient denies results and the patient reports a history of slightly increased AST and ALT in the past, for which she has been monitored by her primary care. She reports she was never told that she had fatty liver. She denies any other risk factors or chronic liver disease including IV drug abuse, blood transfusions, etc. No family history of liver disease. No other specific problems or complaints. PAST MEDICAL HISTORY: Umbilical hernia repair. MEDICATIONS: Reviewed and updated in chart. ALLERGIES: No known drug allergies. SOCIAL HISTORY: Reports social alcohol. Denies tobacco or drug abuse. FAMILY HISTORY: Negative for colon cancer, IBD, or liver disease. REVIEW OF SYSTEMS: GENERAL: Reports some weakness. HEENT: Denies visual complaints or tinnitus. PULMONARY: No shortness of breath. CARDIOVASCULAR: Denies chest pain. GASTROINTESTINAL: Reports mild abdominal pain. All points of 13-point review of system otherwise negative. PHYSICAL EXAMINATION: VITAL SIGNS: Temperature of 98.8, pulse 68, respirations 18, blood pressure 116/81. GENERAL: Fairly nourished black female in no acute distress. HEENT: Pupils equal, round, and reactive. PULMONARY: Clear to auscultation bilaterally. CARDIOVASCULAR: Normal S1, S2. ABDOMEN: Positive bowel sounds, soft. SKIN: No obvious rashes. LABORATORY DATA: Pertinent for white count of 9.2, hemoglobin and hematocrit of 13.4 and 39.8, platelet count of 230. Chem-7 within normal limits. AST and ALT of 1556 and 473. CK of 101,713. Abdomen ultrasound performed on 12/14/2021 showed normal-appearing liver with some signs of steatosis. ASSESSMENT: A 26-year-old female with a history of mildly increased liver function tests, which she says she has had AST and ALT in the high 40s and low 50s but was just been followed by her primary care, now after strenuous workout comes in with rhabdomyolysis with increased liver function tests. Her increased liver function tests are most likely secondary to rhabdomyolysis and possible to shock liver. Conservative medical approach in this situation is best while ensuring no other underlying liver disease. PLAN: 1. Basic liver workup including acute hepatitis panel. 2. Rhabdomyolysis management per primary team. 3. Ensure adequate hydration. 4. Avoid hepatotoxic drugs. 5. No need for liver biopsy or other such intervention at this time. 6. We will follow up with further recommendation based on progress. TID: [id number] RECEIPT: [id number] DARLENE/SANTOS
[2021-12-15] MEDS: FUROSEMIDE 40 MG/4 ML INJ IV SCH ×2 (05:12→18:27)
[2021-12-15 06:04] LABS: Alanine Aminotransferase 550 units/L (7-56); Albumin 3.9 g/dL (3.9-5); Blood Urea Nitrogen 5 mg/dL (7-17); Hemolysis Index 9
[2021-12-15 06:34] LABS: BUN/Creatinine Ratio 10; Bilirubin,Direct < 0.2 mg/dL (0-0.2)
[2021-12-15] MEDS: HEPARIN 5,000 UNIT/1 ML VIAL SUB-Q SCH ×2 (10:12→22:34)
--- NOTE | 2021-12-15 10:51 | Progress Note ---
Assessment and Plan - Patient Problems (1) Rhabdomyolysis Current Visit: Yes Status: Acute Qualifiers: Rhabdomyolysis type: traumatic Encounter type: initial encounter Qualified Code(s): T79.6XXA - Traumatic ischemia of muscle, initial encounter Plan to address problem: Cont aggressive IVF with NS with 200ml/min. trend serial CPK level. Renal function remains stable at this time, however at increased risk for CAROLANN due severe elevation of CPK. Will monitor lytes/CPK, renal parameters closely and make further recommendations. (2) Transaminitis Current Visit: Yes Status: Acute Plan to address problem: 2/2 acute rhabdomyolysis. trend LFTs on IVF Subjective Date of service: 12/15/21 Principal diagnosis: Rhabdomyolysis Interval history: Patient is awake alert, in no acute distress, remains on IV NS Objective - Vital Signs Vital signs: Vital Signs - 12hr 12/15/21 04:47 Temperature 98.5 F Pulse Rate 87 Respiratory 16 Rate Blood Pressure 122/83 O2 Sat by Pulse 100 Oximetry - General Appearance General appearance: well-developed, well-nourished, appears stated age EENT: ATNC, PERRL, mucous membranes moist Neck: no JVD Respiratory: Present: Clear to Ascultation Cardiology: regular, S1S2 Gastrointestinal: normoactive bowel sounds Integumentary: no rash, other (no edema ) Neurologic: no focal deficit, alert and oriented x3, strength 5/5, CN 3-12 intact Psychiatric: mood/affect appropriate, cooperative - Lab 12/14/21 05:16 12/15/21 04:36 Most recent lab results Calcium 9.0 mg/dL (8.4-10.2) 12/15/21 04:36 Medications & Allergies - Medications Allergies/Adverse Reactions: Allergies No Known Allergies Allergy (Verified 12/15/21 08:52) Home Medications: Home Medications Medication Instructions Recorded Confirmed Last Taken Type Norethindrone-E.estradiol-Iron 1 tab PO DAILY 12/14/21 12/15/21 12/14/21 History [Junel Fe 1 mg-20 Mcg Tablet] Clobetasol Propionate [Temovate] 1 applic TP PRN PRN 12/15/21 12/15/21 12/14/21 History Active Medications: Generic Name Dose Route Start Last Admin Trade Name Freq PRN Reason Stop Dose Admin Acetaminophen 650 mg 12/13/21 17:29 12/14/21 07:09 Acetaminophen 325 Mg Tab PO 650 mg Q4H PRN Administration Pain MILD(1-3)/Fever >100.5/[place] Furosemide 40 mg 12/14/21 20:00 12/15/21 05:12 Furosemide 40 Mg/4 Ml Inj IV 40 mg 0600,1800 ERNESTO Administration Heparin Sodium (Porcine) 5,000 unit 12/13/21 22:00 12/15/21 10:12 Heparin 5,000 Unit/1 Ml Vial SUB-Q 5,000 unit Q12HR ERNESTO Administration Hydromorphone HCl 0.5 mg 12/13/21 17:29 Hydromorphone 0.5 Mg/0.5 Ml Inj IV Q3H PRN Pain , Severe (7-10) Dextrose/Sodium Chloride 1,000 mls @ 200 mls/hr 12/13/21 18:00 12/15/21 10:16 D5ns IV 200 mls/hr DIRECT ERNESTO Administration Metoclopramide HCl 10 mg 12/13/21 17:29 Metoclopramide 10 Mg/2 Ml Inj IV Q6H PRN Nausea And Vomiting Morphine Sulfate 2 mg 12/13/21 17:29 Morphine 2 Mg/1 Ml Inj IV Q4H PRN Pain, Moderate (4-6) Ondansetron HCl 4 mg 12/13/21 17:29 Ondansetron 4 Mg/2 Ml Inj IV Q3H PRN Nausea And Vomiting Oxycodone/Acetaminophen 1 tab 12/13/21 17:29 Oxycodone /Acetaminophen 5-325mg Tab PO Q6H PRN Pain, Moderate (4-6) Sodium Bicarbonate 50 meq 12/13/21 19:00 12/15/21 10:13 Sodium Bicarb 8.4% 50 Meq/50 Ml Syringe IV 12/15/21 11:01 50 meq Q8H ERNESTO Administration Sodium Chloride 10 ml 12/13/21 22:00 12/15/21 10:13 Sodium Chloride 0.9% 10 Ml Flush Syringe IV 10 ml BID ERNESTO Administration Sodium Chloride 10 ml 12/13/21 17:29 12/14/21 03:07 Sodium Chloride 0.9% 10 Ml Flush Syringe IV 10 ml PRN PRN Administration LINE FLUSH
[2021-12-15 12:05] LABS: Amphetamine Screen,Urine Negative; Benzodiazepines Screen,Urine Negative; Cannabinoid Screen,Urine Negative; Cocaine Screen,Urine Negative; Methadone Screen,Urine Negative; Opiate Screen,Urine Negative
--- NOTE | 2021-12-15 15:16 | Gastroenterology Progress Note ---
Assessment and Plan Liver: pt presents w/. Rhabdo with noted increased LFT's secondary to that issues - acute Hepatitis negative, other liver serologies pending - noted slight increased LFT's today, no labs to suggest acute liver failure - continue aggressive management of Rhabdo with hydration etc - avoid Hepatotoxic drug - follow labs - no changes at this time, will follow Subjective Date of service: 12/15/21 Principal diagnosis: Rhabdomyolysis Interval history: - pt denies GI complaints overnight Objective - Constitutional Vitals: Temp Pulse Resp BP Pulse Ox 98.5 F 87 16 122/83 96 12/15/21 04:47 12/15/21 04:47 12/15/21 04:47 12/15/21 04:47 12/15/21 14:52 General appearance: no acute distress - EENT Eyes: PERRL - Respiratory Respiratory: bilateral: CTA - Cardiovascular Rhythm: regular Heart Sounds: Present: S1 & S2 - Gastrointestinal General gastrointestinal: Present: soft, non-tender, non-distended - Labs CBC & Chem 7: 12/14/21 05:16 12/15/21 04:36 Labs: Laboratory Results - last 24 hr 12/14/21 12/15/21 12/15/21 19:27 04:36 04:36 Sodium 139 Potassium 3.5 L Chloride 102.0 Carbon Dioxide 29 Anion Gap 12 BUN 5 L Creatinine 0.5 L Estimated GFR > 60 BUN/Creatinine Ratio 10 Glucose 98 Calcium 9.0 Ferritin Total Bilirubin 0.20 Direct Bilirubin < 0.2 Indirect Bilirubin 0.0 AST 1492 H ALT 550 H Alkaline Phosphatase 62 Total Creatine Kinase 107159 H 978444 H Total Protein 6.4 Albumin 3.9 Albumin/Globulin Ratio 1.6 Urine Opiates Screen Urine Methadone Screen Ur Barbiturates Screen Ur Phencyclidine Scrn Ur Amphetamines Screen U Benzodiazepines Scrn Urine Cocaine Screen U Marijuana (THC) Screen Drugs of Abuse Note 12/15/21 12/15/21 04:36 11:30 Sodium Potassium Chloride Carbon Dioxide Anion Gap BUN Creatinine Estimated GFR BUN/Creatinine Ratio Glucose Calcium Ferritin 80.5 Total Bilirubin Direct Bilirubin Indirect Bilirubin AST ALT Alkaline Phosphatase Total Creatine Kinase Total Protein Albumin Albumin/Globulin Ratio Urine Opiates Screen Negative Urine Methadone Screen Negative Ur Barbiturates Screen Negative Ur Phencyclidine Scrn Negative Ur Amphetamines Screen Negative U Benzodiazepines Scrn Negative Urine Cocaine Screen Negative U Marijuana (THC) Screen Negative Drugs of Abuse Note Disclamer
[2021-12-16] MEDS: D5W/0.9% NACL 1,000 ML IV SCH ×3 (02:01→15:24)
[2021-12-16] MEDS: FUROSEMIDE 40 MG/4 ML INJ IV SCH ×2 (05:26→18:33)
[2021-12-16 05:53] LABS: Alanine Aminotransferase 509 units/L (7-56); Albumin 3.9 g/dL (3.9-5); Blood Urea Nitrogen 9 mg/dL (7-17); Calcium 8.7 mg/dL (8.4-10.2); Hemolysis Index 6
[2021-12-16 05:55] LABS: BUN/Creatinine Ratio 15; Bilirubin,Direct < 0.2 mg/dL (0-0.2)
[2021-12-16] MEDS: HEPARIN 5,000 UNIT/1 ML VIAL SUB-Q SCH ×3 (08:22→21:22)
--- NOTE | 2021-12-16 12:03 | Progress Note ---
Assessment and Plan Assessment and plan: Rhabdomyolysis Elevated LFTs 12/16/2021. Patient still with significantly elevated CK levels of 74K. Continue IV fluid hydration and monitor closely. Patient noted slight increased LFTs currently but no labs to suggest acute liver failure. Acute hepatitis negative. Other liver serologies pending History Interval history: No new issues overnight Hospitalist Physical - Constitutional Vitals: Temp Pulse Resp BP Pulse Ox 98.4 F 77 16 122/78 100 12/16/21 05:30 12/16/21 05:30 12/16/21 05:30 12/16/21 05:30 12/15/21 22:04 General appearance: Present: no acute distress, well-nourished - EENT Eyes: Present: PERRL, EOM intact ENT: hearing intact, clear oral mucosa, dentition normal - Neck Neck: Present: supple, normal ROM - Respiratory Respiratory effort: normal Respiratory: bilateral: CTA - Cardiovascular Rhythm: regular Heart Sounds: Present: S1 & S2. Absent: gallop, rub - Extremities Extremities: no ischemia, No edema, Full ROM - Abdominal General gastrointestinal: soft, non-tender, non-distended, normal bowel sounds - Integumentary Integumentary: Present: clear, warm, dry - Neurologic Neurologic: CNII-XII intact, moves all extremities Results - Labs CBC & Chem 7: 12/14/21 05:16 12/16/21 04:11 Labs: Laboratory Last Values WBC 9.2 K/mm3 (4.5-11.0) 12/14/21 05:16 RBC 4.76 M/mm3 (3.65-5.03) 12/14/21 05:16 Hgb 13.4 gm/dl (10.1-14.3) 12/14/21 05:16 Hct 39.8 % (30.3-42.9) D 12/14/21 05:16 MCV 84 fl (79-97) 12/14/21 05:16 MCH 28 pg (28-32) 12/14/21 05:16 MCHC 34 % (30-34) 12/14/21 05:16 RDW 12.9 % (13.2-15.2) L 12/14/21 05:16 Plt Count 230 K/mm3 (140-440) 12/14/21 05:16 Lymph % (Auto) 32.1 % (13.4-35.0) 12/14/21 05:16 [place] % (Auto) 4.8 % (0.0-7.3) 12/14/21 05:16 Eos % (Auto) 2.1 % (0.0-4.3) 12/14/21 05:16 Baso % (Auto) 0.9 % (0.0-1.8) 12/14/21 05:16 Lymph # (Auto) 3.0 K/mm3 (1.2-5.4) 12/14/21 05:16 [facility] [place] # (Auto) 0.4 K/mm3 (0.0-0.8) 12/14/21 05:16 Eos # (Auto) 0.2 K/mm3 (0.0-0.4) 12/14/21 05:16 Baso # (Auto) 0.1 K/mm3 (0.0-0.1) 12/14/21 05:16 Seg Neutrophils % 60.1 % (40.0-70.0) 12/14/21 05:16 Seg Neutrophils # 5.5 K/mm3 (1.8-7.7) 12/14/21 05:16 Sodium 140 mmol/L (137-145) 12/16/21 04:11 Potassium 3.8 mmol/L (3.6-5.0) 12/16/21 04:11 Chloride 102.9 mmol/L (98-107) 12/16/21 04:11 Carbon Dioxide 26 mmol/L (22-30) 12/16/21 04:11 Anion Gap 15 mmol/L 12/16/21 04:11 BUN 9 mg/dL (7-17) 12/16/21 04:11 Creatinine 0.6 mg/dL (0.6-1.2) 12/16/21 04:11 Estimated GFR > 60 ml/min 12/16/21 04:11 BUN/Creatinine Ratio 15 % 12/16/21 04:11 Glucose 91 mg/dL (65-100) 12/16/21 04:11 Calcium 8.7 mg/dL (8.4-10.2) 12/16/21 04:11 Ferritin 80.5 ng/mL (10.0-200.0) 12/15/21 04:36 Total Bilirubin 0.20 mg/dL (0.1-1.2) 12/16/21 04:11 Direct Bilirubin < 0.2 mg/dL (0-0.2) 12/16/21 04:11 Indirect Bilirubin 0.0 mg/dL 12/16/21 04:11 AST 1026 units/L (5-40) H 12/16/21 04:11 ALT 509 units/L (7-56) H 12/16/21 04:11 Alkaline Phosphatase 59 units/L (35-129) 12/16/21 04:11 Total Creatine Kinase 95347 units/L (30-135) H 12/16/21 04:11 Total Protein 6.0 g/dL (6.3-8.2) L 12/16/21 04:11 Albumin 3.9 g/dL (3.9-5) 12/16/21 04:11 Albumin/Globulin Ratio 1.9 % 12/16/21 04:11 Urine Color Straw (Yellow) 12/13/21 Unknown Urine Turbidity Clear (Clear) 12/13/21 Unknown Urine pH 7.0 (5.0-7.0) 12/13/21 Unknown Ur Specific [place] 1.001 (1.003-1.030) L 12/13/21 Unknown Urine Protein 30 mg/dl mg/dL (Negative) 12/13/21 Unknown Urine Glucose (UA) Neg mg/dL (Negative) 12/13/21 Unknown Urine Ketones Neg mg/dL (Negative) 12/13/21 Unknown Urine Blood Lg (Negative) 12/13/21 Unknown Urine Nitrite Neg (Negative) 12/13/21 Unknown Urine Bilirubin Neg (Negative) 12/13/21 Unknown Urine Urobilinogen < 2.0 mg/dL (<2.0) 12/13/21 Unknown Ur Leukocyte Esterase Neg (Negative) 12/13/21 Unknown Urine WBC (Auto) 1.0 /HPF (0.0-6.0) 12/13/21 Unknown Urine RBC (Auto) 1.0 /HPF (0.0-6.0) 12/13/21 Unknown U Epithel Cells (Auto) < 1.0 /HPF (0-13.0) 12/13/21 Unknown Urine Mucus Few /HPF 12/13/21 Unknown Urine Opiates Screen Negative 12/15/21 11:30 Urine Methadone Screen Negative 12/15/21 11:30 Ur Barbiturates Screen Negative 12/15/21 11:30 Ur Phencyclidine Scrn Negative 12/15/21 11:30 Ur Amphetamines Screen Negative 12/15/21 11:30 U Benzodiazepines Scrn Negative 12/15/21 11:30 Urine Cocaine Screen Negative 12/15/21 11:30 U Marijuana (THC) Screen Negative 12/15/21 11:30 Drugs of Abuse Note Disclamer 12/15/21 11:30 Hepatitis A IgM Ab Non-reactive (NonReactive) 12/14/21 11:41 Hep Bs Antigen Non-reactive (Negative) 12/14/21 11:41 Hep B Core IgM Ab Non-reactive (NonReactive) 12/14/21 11:41 Hepatitis C Antibody Non-reactive (NonReactive) 12/14/21 11:41 [place]/IV: Voiding Method Toilet Active Medications - Current Medications Current Medications: Generic Name Dose Route Start Last Admin Trade Name Freq PRN Reason Stop Dose Admin Acetaminophen 650 mg 12/13/21 17:29 12/14/21 07:09 Acetaminophen 325 Mg Tab PO 650 mg Q4H PRN Administration Pain MILD(1-3)/Fever >100.5/[place] Furosemide 40 mg 12/14/21 20:00 12/16/21 05:26 Furosemide 40 Mg/4 Ml Inj IV 40 mg 0600,1800 ERNESTO Administration Heparin Sodium (Porcine) 5,000 unit 12/13/21 22:00 12/16/21 08:22 Heparin 5,000 Unit/1 Ml Vial SUB-Q 5,000 unit Q12HR ERNESTO Administration Hydromorphone HCl 0.5 mg 12/13/21 17:29 Hydromorphone 0.5 Mg/0.5 Ml Inj IV Q3H PRN Pain , Severe (7-10) Dextrose/Sodium Chloride 1,000 mls @ 200 mls/hr 12/13/21 18:00 12/16/21 02:01 D5ns IV 200 mls/hr DIRECT ERNESTO Administration Metoclopramide HCl 10 mg 12/13/21 17:29 Metoclopramide 10 Mg/2 Ml Inj IV Q6H PRN Nausea And Vomiting Morphine Sulfate 2 mg 12/13/21 17:29 Morphine 2 Mg/1 Ml Inj IV Q4H PRN Pain, Moderate (4-6) Ondansetron HCl 4 mg 06/18/22 17:29 Ondansetron 4 Mg/2 Ml Inj IV Q3H PRN Nausea And Vomiting Oxycodone/Acetaminophen 1 tab 12/13/21 17:29 Oxycodone /Acetaminophen 5-325mg Tab PO Q6H PRN Pain, Moderate (4-6) Sodium Chloride 10 ml 12/13/21 22:00 12/16/21 08:22 Sodium Chloride 0.9% 10 Ml Flush Syringe IV 10 ml BID ERNESTO Administration Sodium Chloride 10 ml 12/13/21 17:29 12/14/21 03:07 Sodium Chloride 0.9% 10 Ml Flush Syringe IV 10 ml PRN PRN Administration LINE FLUSH
--- NOTE | 2021-12-16 12:23 | Gastroenterology Progress Note ---
Assessment and Plan Liver: pt presents w/. Rhabdo with noted increased LFT's secondary to that issues - acute Hepatitis negative, other liver serologies pending - lft's no improving, no labs to suggest acute liver failure - continue aggressive management of Rhabdo with hydration etc - avoid Hepatotoxic drug - follow labs - no changes at this time, if labs improving in am ok to dc from GI stand point Subjective Date of service: 12/16/21 Principal diagnosis: Rhabdomyolysis Interval history: - no GI related complaints Objective - Constitutional Vitals: Temp Pulse Resp BP Pulse Ox 98.4 F 77 16 122/78 100 12/16/21 05:30 12/16/21 05:30 12/16/21 05:30 12/16/21 05:30 12/15/21 22:04 General appearance: no acute distress - EENT Eyes: PERRL - Respiratory Respiratory: bilateral: CTA - Cardiovascular Rhythm: regular Heart Sounds: Present: S1 & S2 - Gastrointestinal General gastrointestinal: Present: soft, non-tender, non-distended - Labs CBC & Chem 7: 12/14/21 05:16 12/16/21 04:11 Labs: Laboratory Results - last 24 hr 12/15/21 12/15/21 12/16/21 11:30 23:17 04:11 Sodium Potassium Chloride Carbon Dioxide Anion Gap BUN Creatinine Estimated GFR BUN/Creatinine Ratio Glucose Calcium Total Bilirubin Direct Bilirubin Indirect Bilirubin AST ALT Alkaline Phosphatase Total Creatine Kinase 70480 H 03863 H Total Protein Albumin Albumin/Globulin Ratio Drugs of Abuse Note Disclamer 12/16/21 04:11 Sodium 140 Potassium 3.8 Chloride 102.9 Carbon Dioxide 26 Anion Gap 15 BUN 9 Creatinine 0.6 Estimated GFR > 60 BUN/Creatinine Ratio 15 Glucose 91 Calcium 8.7 Total Bilirubin 0.20 Direct Bilirubin < 0.2 Indirect Bilirubin 0.0 AST 1026 H ALT 509 H Alkaline Phosphatase 59 Total Creatine Kinase Total Protein 6.0 L Albumin 3.9 Albumin/Globulin Ratio 1.9 Drugs of Abuse Note
--- NOTE | 2021-12-16 12:24 | Progress Note ---
Assessment and Plan - Patient Problems (1) Rhabdomyolysis Current Visit: Yes Status: Acute Qualifiers: Rhabdomyolysis type: traumatic Encounter type: initial encounter Qualified Code(s): T79.6XXA - Traumatic ischemia of muscle, initial encounter Plan to address problem: Cont aggressive IVF with NS with 200ml/min.Renal function remains stable at this time, CPK trending down. Will monitor lytes/CPK, renal parameters closely and make further recommendations. (2) Transaminitis Current Visit: Yes Status: Acute Plan to address problem: 2/2 acute rhabdomyolysis. trend LFTs on IVF Subjective Date of service: 12/16/21 Principal diagnosis: Rhabdomyolysis Interval history: Patient is awake alert, in no acute distress, remains on IV NS Objective - Vital Signs Vital signs: Vital Signs - 12hr 12/16/21 05:30 Temperature 98.4 F Pulse Rate 77 Respiratory 16 Rate Blood Pressure 122/78 [Right] - General Appearance General appearance: well-developed, well-nourished, appears stated age EENT: ATNC, PERRL, mucous membranes moist Neck: no JVD Respiratory: Present: Clear to Ascultation Cardiology: regular, S1S2 Gastrointestinal: normoactive bowel sounds Integumentary: no rash, other (no edema ) Neurologic: no focal deficit, alert and oriented x3, strength 5/5, CN 3-12 intac t Psychiatric: mood/affect appropriate, cooperative - Lab 12/14/21 05:16 12/16/21 04:11 Most recent lab results Calcium 8.7 mg/dL (8.4-10.2) 12/16/21 04:11 Medications & Allergies - Medications Allergies/Adverse Reactions: Allergies No Known Allergies Allergy (Verified 12/15/21 08:52) Home Medications: Home Medications Medication Instructions Recorded Confirmed Last Taken Type Norethindrone-E.estradiol-Iron 1 tab PO DAILY 12/14/21 12/15/21 12/14/21 History [Junel Fe 1 mg-20 Mcg Tablet] Clobetasol Propionate [Temovate] 1 applic TP PRN PRN 12/15/21 12/15/21 12/14/21 History Active Medications: Generic Name Dose Route Start Last Admin Trade Name Freq PRN Reason Stop Dose Admin Acetaminophen 650 mg 12/13/21 17:29 12/14/21 07:09 Acetaminophen 325 Mg Tab PO 650 mg Q4H PRN Administration Pain MILD(1-3)/Fever >100.5/[place] Furosemide 40 mg 12/14/21 20:00 12/16/21 05:26 Furosemide 40 Mg/4 Ml Inj IV 40 mg 0600,1800 ERNESTO Administration Heparin Sodium (Porcine) 5,000 unit 12/13/21 22:00 12/16/21 08:22 Heparin 5,000 Unit/1 Ml Vial SUB-Q 5,000 unit Q12HR ERNESTO Administration Hydromorphone HCl 0.5 mg 12/13/21 17:29 Hydromorphone 0.5 Mg/0.5 Ml Inj IV Q3H PRN Pain , Severe (7-10) Dextrose/Sodium Chloride 1,000 mls @ 200 mls/hr 12/13/21 18:00 12/16/21 02:01 D5ns IV 200 mls/hr DIRECT ERNESTO Administration Metoclopramide HCl 10 mg 12/13/21 17:29 Metoclopramide 10 Mg/2 Ml Inj IV Q6H PRN Nausea And Vomiting Morphine Sulfate 2 mg 12/13/21 17:29 Morphine 2 Mg/1 Ml Inj IV Q4H PRN Pain, Moderate (4-6) Ondansetron HCl 4 mg 12/13/21 17:29 Ondansetron 4 Mg/2 Ml Inj IV Q3H PRN Nausea And Vomiting Oxycodone/Acetaminophen 1 tab 12/13/21 17:29 Oxycodone /Acetaminophen 5-325mg Tab PO Q6H PRN Pain, Moderate (4-6) Sodium Chloride 10 ml 12/13/21 22:00 12/16/21 08:22 Sodium Chloride 0.9% 10 Ml Flush Syringe IV 10 ml BID ERNESTO Administration Sodium Chloride 10 ml 12/13/21 17:29 12/14/21 03:07 Sodium Chloride 0.9% 10 Ml Flush Syringe IV 10 ml PRN PRN Administration LINE FLUSH
[2021-12-17] MEDS: D5W/0.9% NACL 1,000 ML IV SCH ×2 (00:30→05:03)
[2021-12-17] MEDS: FUROSEMIDE 40 MG/4 ML INJ IV SCH ×2 (05:02→18:09)
[2021-12-17 06:48] LABS: Alanine Aminotransferase 454 units/L (7-56); Albumin 4.1 g/dL (3.9-5); Blood Urea Nitrogen 5 mg/dL (7-17); Hemolysis Index 2
[2021-12-17 06:50] LABS: BUN/Creatinine Ratio 10; Bilirubin,Direct < 0.2 mg/dL (0-0.2)
[2021-12-17] MEDS: SODIUM CHLORIDE 0.9% 1000 ML 1,000 ML IV SCH ×3 (10:00→21:16)
--- NOTE | 2021-12-17 10:35 | Gastroenterology Progress Note ---
Assessment and Plan 1. GI: pt presented w/ Rhabdo with increased ;ft's - lft's improving without signs of pending liver failure - continue to follow labs - diet as tolerated - ok to dc from GI standpoint - will sign off, call if needed Subjective Date of service: 12/17/21 Principal diagnosis: Rhabdomyolysis Interval history: - no GI or l;iver complaints overnight Objective - Constitutional Vitals: Temp Pulse Resp BP Pulse Ox 98.3 F 91 H 20 122/65 99 12/17/21 06:08 12/17/21 06:08 12/17/21 00:33 12/17/21 06:08 12/17/21 06:08 General appearance: no acute distress - EENT Eyes: PERRL - Respiratory Respiratory: bilateral: CTA - Gastrointestinal General gastrointestinal: Present: soft, non-tender, non-distended - Labs CBC & Chem 7: 12/14/21 05:16 12/17/21 05:49 Labs: Laboratory Results - last 24 hr 12/16/21 12/17/21 17:59 05:49 Sodium 139 Potassium 3.2 L Chloride 102.3 Carbon Dioxide 25 Anion Gap 15 BUN 5 L Creatinine 0.5 L Estimated GFR > 60 BUN/Creatinine Ratio 10 Glucose 103 H Calcium 9.0 Total Bilirubin 0.30 Direct Bilirubin < 0.2 Indirect Bilirubin 0.1 AST 550 H ALT 454 H Alkaline Phosphatase 65 Total Creatine Kinase 00122 H 17955 H Total Protein 7.3 D Albumin 4.1 Albumin/Globulin Ratio 1.3
--- NOTE | 2021-12-17 10:38 | Progress Note ---
Assessment and Plan - Patient Problems (1) Rhabdomyolysis Current Visit: Yes Status: Acute Qualifiers: Rhabdomyolysis type: traumatic Encounter type: initial encounter Qualified Code(s): T79.6XXA - Traumatic ischemia of muscle, initial encounter Plan to address problem: Cont aggressive IVF with NS.Renal function remains stable at this time, CPK trending down. Stable for discharge from renal stand point (2) Transaminitis Current Visit: Yes Status: Acute Plan to address problem: 2/2 acute rhabdomyolysis. trend LFTs on IVF Subjective Date of service: 12/17/21 Principal diagnosis: Rhabdomyolysis Interval history: Patient is awake alert, in no acute distress, remains on IV NS Objective - Vital Signs Vital signs: Vital Signs - 12hr 12/17/21 12/17/21 00:33 06:08 Temperature 98.4 F 98.3 F Pulse Rate 89 91 H Respiratory 20 Rate Blood Pressure 122/76 122/65 O2 Sat by Pulse 100 99 Oximetry - General Appearance General appearance: well-developed, well-nourished, appears stated age EENT: ATNC, PERRL, mucous membranes moist Neck: no JVD Respiratory: Present: Clear to Ascultation Cardiology: regular, S1S2 Gastrointestinal: normoactive bowel sounds Neurologic: no focal deficit, alert and oriented x3, strength 5/5, CN 3-12 intact Psychiatric: mood/affect appropriate, cooperative - Lab 12/14/21 05:16 12/17/21 05:49 Most recent lab results Calcium 9.0 mg/dL (8.4-10.2) 12/17/21 05:49 Medications & Allergies - Medications Allergies/Adverse Reactions: Allergies No Known Allergies Allergy (Verified 12/15/21 08:52) Home Medications: Home Medications Medication Instructions Recorded Confirmed Last Taken Type Norethindrone-E.estradiol-Iron 1 tab PO DAILY 12/14/21 12/15/21 12/14/21 History [Junel Fe 1 mg-20 Mcg Tablet] Clobetasol Propionate [Temovate] 1 applic TP PRN PRN 12/15/21 12/15/21 12/14/21 History Active Medications: Generic Name Dose Route Start Last Admin Trade Name Freq PRN Reason Stop Dose Admin Acetaminophen 650 mg 12/13/21 17:29 12/14/21 07:09 Acetaminophen 325 Mg Tab PO 650 mg Q4H PRN Administration Pain MILD(1-3)/Fever >100.5/[place] Furosemide 40 mg 12/14/21 20:00 12/17/21 05:02 Furosemide 40 Mg/4 Ml Inj IV 40 mg 0600,1800 ERNESTO Administration Heparin Sodium (Porcine) 5,000 unit 12/13/21 22:00 12/16/21 21:22 Heparin 5,000 Unit/1 Ml Vial SUB-Q 5,000 unit Q12HR ERNESTO Administration Hydromorphone HCl 0.5 mg 12/13/21 17:29 Hydromorphone 0.5 Mg/0.5 Ml Inj IV Q3H PRN Pain , Severe (7-10) Sodium Chloride 1,000 mls @ 200 mls/hr 12/17/21 09:00 Nacl 0.9% 1000 Ml IV DIRECT ERNESTO Metoclopramide HCl 10 mg 12/13/21 17:29 Metoclopramide 10 Mg/2 Ml Inj IV Q6H PRN Nausea And Vomiting Morphine Sulfate 2 mg 12/13/21 17:29 Morphine 2 Mg/1 Ml Inj IV Q4H PRN Pain, Moderate (4-6) Ondansetron HCl 4 mg 12/13/21 17:29 Ondansetron 4 Mg/2 Ml Inj IV Q3H PRN Nausea And Vomiting Oxycodone/Acetaminophen 1 tab 12/13/21 17:29 Oxycodone /Acetaminophen 5-325mg Tab PO Q6H PRN Pain, Moderate (4-6) Sodium Chloride 10 ml 12/13/21 22:00 12/16/21 21:25 Sodium Chloride 0.9% 10 Ml Flush Syringe IV 10 ml BID ERNESTO Administration Sodium Chloride 10 ml 12/13/21 17:29 12/14/21 03:07 Sodium Chloride 0.9% 10 Ml Flush Syringe IV 10 ml PRN PRN Administration LINE FLUSH
[2021-12-17] MEDS: HEPARIN 5,000 UNIT/1 ML VIAL SUB-Q SCH ×2 (12:25→21:37)
--- NOTE | 2021-12-17 16:40 | Progress Note ---
Assessment and Plan - Patient Problems (1) Rhabdomyolysis Current Visit: Yes Status: Acute Qualifiers: Rhabdomyolysis type: traumatic Encounter type: initial encounter Qualified Code(s): T79.6XXA - Traumatic ischemia of muscle, initial encounter Plan to address problem: Patient did excessive cycling for the first time on 12/09/2021 Cycling classes was there for 45 minutes and was pushed to the limit on the day 1 itself Ck much improved from 100,000 to [id number] Probable discharge tomorrow (2) Transaminitis Current Visit: Yes Status: Acute Plan to address problem: Will get acute hepatitis profile Hep A, B and C, are not expected in this patient Sometimes transaminases are elevated in rhabdomyolysis AST is elevated in 95% of the rhabdomyolysis patient's ALT is elevated in 73% of the patient's (3) Polycythemia due to fall in plasma volume Current Visit: Yes Status: Acute Plan to address problem: Higher hemoglobin and hematocrit secondary to fall in plasma volume IV fluids for now Recheck hemoglobin and hematocrit tomorrow morning (4) DVT prophylaxis Current Visit: Yes Status: Acute Plan to address problem: On anticoagulation GI prophylaxis (5) Advance care planning Current Visit: Yes Status: Acute Plan to address problem: And disease education conducted care plan discussed diagnosis discussed prognosis discussed patient acknowledges understanding and agrees with care plan. +30 minutes Subjective Date of service: 12/17/21 Principal diagnosis: Rhabdomyolysis Interval history: Rhabdo and Transaminitis Improving Repeat labs in Am CK --mid [id number] from 100, 000 possible discharge tomorrow Objective - Constitutional Vitals: Vital Signs - 12hr 12/17/21 12/17/21 06:08 11:15 Temperature 98.3 F 98.8 F Pulse Rate 91 H 84 Respiratory 18 Rate Blood Pressure 122/65 112/71 O2 Sat by Pulse 99 99 Oximetry General appearance: Present: no acute distress, well-nourished - EENT Eyes: PERRL, EOM intact ENT: hearing intact, clear oral mucosa Ears: bilateral: normal - Neck Neck: supple, normal ROM - Respiratory Respiratory effort: normal Respiratory: bilateral: CTA - Breasts Breasts: normal - Cardiovascular Heart rate: 78 Rhythm: regular Heart Sounds: Present: S1 & S2. Absent: gallop, rub Extremities: pulses intact, No edema, normal color, Full ROM - Gastrointestinal General gastrointestinal: Present: soft, non-tender, non-distended, normal bowel sounds - Genitourinary Female genitourinary: normal - Integumentary Integumentary: clear, warm, dry - Musculoskeletal Musculoskeletal: 1, strength equal bilaterally - Neurologic Neurologic: moves all extremities - Psychiatric Psychiatric: memory intact, appropriate mood/affect, intact judgment & insight - Labs CBC & Chem 7: 12/18/21 05:35 12/18/21 05:35 Labs: Abnormal lab results 12/16/21 12/17/21 Range/Units 17:59 05:49 Potassium 3.2 L (3.6-5.0) mmol/L BUN 5 L (7-17) mg/dL Creatinine 0.5 L (0.6-1.2) mg/dL Glucose 103 H (65-100) mg/dL AST 550 H (5-40) units/L ALT 454 H (7-56) units/L Total Creatine Kinase 63738 H 54053 H (30-135) units/L
[2021-12-18] MEDS: SODIUM CHLORIDE 0.9% 1000 ML 1,000 ML IV SCH ×4 (02:17→20:13)
[2021-12-18 05:51] LABS: Basophils # (Auto) 0.1 K/mm3 (0.0-0.1); Basophils % (Auto) 0.9 % (0.0-1.8); Eosinophils # (Auto) 0.2 K/mm3 (0.0-0.4); Eosinophils % (Auto) 2.5 % (0.0-4.3); Hematocrit 36.1 % (30.3-42.9); Hemoglobin 12.2 gm/dl (10.1-14.3); Lymphocytes # (Auto) 3.2 K/mm3 (1.2-5.4); Lymphocytes % (Auto) 46.1 % (13.4-35.0); Mean Corpuscular HGB Conc 34 % (30-34); Mean Corpuscular Volume 83 fl (79-97); Monocytes # (Auto) 0.4 K/mm3 (0.0-0.8); Monocytes % (Auto) 5.1 % (0.0-7.3); Platelet Count 212 K/mm3 (140-440); Red Blood Count 4.34 M/mm3 (3.65-5.03); Red Cell Distribution Width 12.7 % (13.2-15.2)
[2021-12-18 06:06] LABS: Alanine Aminotransferase 341 units/L (7-56); Albumin 3.5 g/dL (3.9-5); Blood Urea Nitrogen 7 mg/dL (7-17); Calcium 8.6 mg/dL (8.4-10.2); Hemolysis Index 2
[2021-12-18 06:08] LABS: BUN/Creatinine Ratio 14
[2021-12-18] MEDS: FUROSEMIDE 40 MG/4 ML INJ IV SCH ×2 (06:30→17:55)
[2021-12-18] MEDS: HEPARIN 5,000 UNIT/1 ML VIAL SUB-Q SCH ×2 (09:05→22:18)
[2021-12-18] MEDS ORDERED: POTASSIUM CHLORIDE ER 20 MEQ TAB PO NR (10:00)
--- NOTE | 2021-12-18 11:50 | Progress Note ---
Assessment and Plan Assessment and plan: Rhabdomyolysis Elevated LFTs 12/16/2021. Patient still with significantly elevated CK levels of 74K. Continue IV fluid hydration and monitor closely. Patient noted slight increased LFTs currently but no labs to suggest acute liver failure. Acute hepatitis negative. Other liver serologies pending 12/17/2021. CK levels improved to the 30,000 range. 12/18/2021. CK levels have improved to 16,000 range. LFTs continue to improve as well. Recheck labs in a.m. History Interval history: No new issues overnight Hospitalist Physical - Constitutional Vitals: Temp Pulse Resp BP Pulse Ox 98.1 F 77 16 108/68 98 12/18/21 04:34 12/18/21 04:34 12/18/21 04:34 12/18/21 04:34 12/18/21 04:34 General appearance: Present: no acute distress, well-nourished - EENT Eyes: Present: PERRL, EOM intact ENT: hearing intact, clear oral mucosa, dentition normal - Neck Neck: Present: supple, normal ROM - Respiratory Respiratory effort: normal Respiratory: bilateral: CTA - Cardiovascular Rhythm: regular Heart Sounds: Present: S1 & S2. Absent: gallop, rub - Extremities Extremities: no ischemia, No edema, Full ROM - Abdominal General gastrointestinal: soft, non-tender, non-distended, normal bowel sounds - Integumentary Integumentary: Present: clear, warm, dry - Neurologic Neurologic: CNII-XII intact, moves all extremities Results - Labs CBC & Chem 7: 12/18/21 05:35 12/18/21 05:35 Labs: Laboratory Last Values WBC 7.0 K/mm3 (4.5-11.0) 12/18/21 05:35 RBC 4.34 M/mm3 (3.65-5.03) 12/18/21 05:35 Hgb 12.2 gm/dl (10.1-14.3) 12/18/21 05:35 Hct 36.1 % (30.3-42.9) 12/18/21 05:35 MCV 83 fl (79-97) 12/18/21 05:35 MCH 28 pg (28-32) 12/18/21 05:35 MCHC 34 % (30-34) 12/18/21 05:35 RDW 12.7 % (13.2-15.2) L 12/18/21 05:35 Plt Count 212 K/mm3 (140-440) 12/18/21 05:35 Lymph % (Auto) 46.1 % (13.4-35.0) H 12/18/21 05:35 [place] % (Auto) 5.1 % (0.0-7.3) 12/18/21 05:35 Eos % (Auto) 2.5 % (0.0-4.3) 12/18/21 05:35 Baso % (Auto) 0.9 % (0.0-1.8) 12/18/21 05:35 Lymph # (Auto) 3.2 K/mm3 (1.2-5.4) 12/18/21 05:35 [place] # (Auto) 0.4 K/mm3 (0.0-0.8) 12/18/21 05:35 Eos # (Auto) 0.2 K/mm3 (0.0-0.4) 12/18/21 05:35 Baso # (Auto) 0.1 K/mm3 (0.0-0.1) 12/18/21 05:35 Seg Neutrophils % 45.4 % (40.0-70.0) 12/18/21 05:35 Seg Neutrophils # 3.2 K/mm3 (1.8-7.7) 12/18/21 05:35 Sodium 139 mmol/L (137-145) 12/18/21 05:35 Potassium 3.4 mmol/L (3.6-5.0) L 12/18/21 05:35 Chloride 108.3 mmol/L (98-107) H 12/18/21 05:35 Carbon Dioxide 25 mmol/L (22-30) 12/18/21 05:35 Anion Gap 9 mmol/L 12/18/21 05:35 BUN 7 mg/dL (7-17) 12/18/21 05:35 Creatinine 0.5 mg/dL (0.6-1.2) L 12/18/21 05:35 Estimated GFR > 60 ml/min 12/18/21 05:35 BUN/Creatinine Ratio 14 % 12/18/21 05:35 Glucose 91 mg/dL (65-100) 12/18/21 05:35 Calcium 8.6 mg/dL (8.4-10.2) 12/18/21 05:35 Ferritin 80.5 ng/mL (10.0-200.0) 12/15/21 04:36 Total Bilirubin < 0.20 mg/dL (0.1-1.2) 12/18/21 05:35 Direct Bilirubin < 0.2 mg/dL (0-0.2) 12/17/21 05:49 Indirect Bilirubin 0.1 mg/dL 12/17/21 05:49 AST 276 units/L (5-40) H 12/18/21 05:35 ALT 341 units/L (7-56) H 12/18/21 05:35 Alkaline Phosphatase 57 units/L (35-129) 12/18/21 05:35 Total Creatine Kinase 03606 units/L (30-135) H 12/18/21 05:35 Total Protein 6.2 g/dL (6.3-8.2) L 12/18/21 05:35 Albumin 3.5 g/dL (3.9-5) L 12/18/21 05:35 Albumin/Globulin Ratio 1.3 % 12/18/21 05:35 Urine Color Straw (Yellow) 12/13/21 Unknown Urine Turbidity Clear (Clear) 12/13/21 Unknown Urine pH 7.0 (5.0-7.0) 12/13/21 Unknown Ur Specific [place] 1.001 (1.003-1.030) L 12/13/21 Unknown Urine Protein 30 mg/dl mg/dL (Negative) 12/13/21 Unknown Urine Glucose (UA) Neg mg/dL (Negative) 12/13/21 Unknown Urine Ketones Neg mg/dL (Negative) 12/13/21 Unknown Urine Blood Lg (Negative) 12/13/21 Unknown Urine Nitrite Neg (Negative) 12/13/21 Unknown Urine Bilirubin Neg (Negative) 12/13/21 Unknown Urine Urobilinogen < 2.0 mg/dL (<2.0) 12/13/21 Unknown Ur Leukocyte Esterase Neg (Negative) 12/13/21 Unknown Urine WBC (Auto) 1.0 /HPF (0.0-6.0) 12/13/21 Unknown Urine RBC (Auto) 1.0 /HPF (0.0-6.0) 12/13/21 Unknown U Epithel Cells (Auto) < 1.0 /HPF (0-13.0) 12/13/21 Unknown Urine Mucus Few /HPF 12/13/21 Unknown Urine Opiates Screen Negative 12/15/21 11:30 Urine Methadone Screen Negative 12/15/21 11:30 Ur Barbiturates Screen Negative 12/15/21 11:30 Ur Phencyclidine Scrn Negative 12/15/21 11:30 Ur Amphetamines Screen Negative 12/15/21 11:30 U Benzodiazepines Scrn Negative 12/15/21 11:30 Urine Cocaine Screen Negative 12/15/21 11:30 U Marijuana (THC) Screen Negative 12/15/21 11:30 Drugs of Abuse Note Disclamer 12/15/21 11:30 Hepatitis A IgM Ab Non-reactive (NonReactive) 12/14/21 11:41 Hep Bs Antigen Non-reactive (Negative) 12/14/21 11:41 Hep B Core IgM Ab Non-reactive (NonReactive) 12/14/21 11:41 Hepatitis C Antibody Non-reactive (NonReactive) 12/14/21 11:41 [place]/IV: Voiding Method Toilet Active Medications - Current Medications Current Medications: Generic Name Dose Route Start Last Admin Trade Name Freq PRN Reason Stop Dose Admin Acetaminophen 650 mg 12/13/21 17:29 12/14/21 07:09 Acetaminophen 325 Mg Tab PO 650 mg Q4H PRN Administration Pain MILD(1-3)/Fever >100.5/[place] Furosemide 40 mg 12/14/21 20:00 12/18/21 06:30 Furosemide 40 Mg/4 Ml Inj IV 40 mg 0600,1800 ERNESTO Administration Heparin Sodium (Porcine) 5,000 unit 12/13/21 22:00 12/18/21 09:05 Heparin 5,000 Unit/1 Ml Vial SUB-Q 5,000 unit Q12HR ERNESTO Administration Hydromorphone HCl 0.5 mg 12/13/21 17:29 Hydromorphone 0.5 Mg/0.5 Ml Inj IV Q3H PRN Pain , Severe (7-10) Sodium Chloride 1,000 mls @ 200 mls/hr 12/17/21 09:00 12/18/21 09:04 Nacl 0.9% 1000 Ml IV 200 mls/hr DIRECT ERNESTO Administration Metoclopramide HCl 10 mg 12/13/21 17:29 Metoclopramide 10 Mg/2 Ml Inj IV Q6H PRN Nausea And Vomiting Morphine Sulfate 2 mg 12/13/21 17:29 Morphine 2 Mg/1 Ml Inj IV Q4H PRN Pain, Moderate (4-6) Ondansetron HCl 4 mg 12/13/21 17:29 Ondansetron 4 Mg/2 Ml Inj IV Q3H PRN Nausea And Vomiting Oxycodone/Acetaminophen 1 tab 12/13/21 17:29 Oxycodone /Acetaminophen 5-325mg Tab PO Q6H PRN Pain, Moderate (4-6) Potassium Chloride 40 meq 12/18/21 10:00 Potassium Chloride Er 20 Meq Tab PO 12/18/21 13:00 ONCE@1000 NR Sodium Chloride 10 ml 12/13/21 22:00 12/17/21 21:37 Sodium Chloride 0.9% 10 Ml Flush Syringe IV 10 ml BID ERNESTO Administration Sodium Chloride 10 ml 12/13/21 17:29 12/14/21 03:07 Sodium Chloride 0.9% 10 Ml Flush Syringe IV 10 ml PRN PRN Administration LINE FLUSH
--- NOTE | 2021-12-18 17:07 | Progress Note ---
Assessment and Plan - Patient Problems (1) Rhabdomyolysis Current Visit: Yes Status: Acute Qualifiers: Rhabdomyolysis type: traumatic Encounter type: initial encounter Qualified Code(s): T79.6XXA - Traumatic ischemia of muscle, initial encounter Plan to address problem: Cont aggressive IVF with NS.Renal function remains stable at this time, CPK trending down. Stable for discharge from renal stand point (2) Transaminitis Current Visit: Yes Status: Acute Plan to address problem: 2/2 acute rhabdomyolysis. trend LFTs on IVF Subjective Date of service: 12/18/21 Principal diagnosis: Rhabdomyolysis Interval history: Patient is awake alert, in no acute distress, remains on IV NS Objective - General Appearance General appearance: well-developed, well-nourished, appears stated age EENT: ATNC, PERRL, mucous membranes moist Neck: no JVD Respiratory: Present: Clear to Ascultation Gastrointestinal: normal Integumentary: no rash Neurologic: no focal deficit, alert and oriented x3, strength 5/5, CN 3-12 intact Psychiatric: mood/affect appropriate, cooperative - Lab 12/18/21 05:35 12/18/21 05:35 Most recent lab results Calcium 8.6 mg/dL (8.4-10.2) 12/18/21 05:35 Medications & Allergies - Medications Allergies/Adverse Reactions: Allergies No Known Allergies Allergy (Verified 12/15/21 08:52) Home Medications: Home Medications Medication Instructions Recorded Confirmed Last Taken Type Norethindrone-E.estradiol-Iron 1 tab PO DAILY 12/14/21 12/15/21 12/14/21 History [Junel Fe 1 mg-20 Mcg Tablet] Clobetasol Propionate [Temovate] 1 applic TP PRN PRN 12/15/21 12/15/21 12/14/21 History Active Medications: Generic Name Dose Route Start Last Admin Trade Name Freq PRN Reason Stop Dose Admin Acetaminophen 650 mg 12/13/21 17:29 12/14/21 07:09 Acetaminophen 325 Mg Tab PO 650 mg Q4H PRN Administration Pain MILD(1-3)/Fever >100.5/[place] Furosemide 40 mg 12/14/21 20:00 12/18/21 06:30 Furosemide 40 Mg/4 Ml Inj IV 40 mg 0600,1800 ERNESTO Administration Heparin Sodium (Porcine) 5,000 unit 12/13/21 22:00 12/18/21 09:05 Heparin 5,000 Unit/1 Ml Vial SUB-Q 5,000 unit Q12HR ERNESTO Administration Hydromorphone HCl 0.5 mg 12/13/21 17:29 Hydromorphone 0.5 Mg/0.5 Ml Inj IV Q3H PRN Pain , Severe (7-10) Sodium Chloride 1,000 mls @ 200 mls/hr 12/17/21 09:00 12/18/21 14:50 Nacl 0.9% 1000 Ml IV 200 mls/hr DIRECT ERNESTO Administration Metoclopramide HCl 10 mg 12/13/21 17:29 Metoclopramide 10 Mg/2 Ml Inj IV Q6H PRN Nausea And Vomiting Morphine Sulfate 2 mg 12/13/21 17:29 Morphine 2 Mg/1 Ml Inj IV Q4H PRN Pain, Moderate (4-6) Ondansetron HCl 4 mg 12/13/21 17:29 Ondansetron 4 Mg/2 Ml Inj IV Q3H PRN Nausea And Vomiting Oxycodone/Acetaminophen 1 tab 12/13/21 17:29 Oxycodone /Acetaminophen 5-325mg Tab PO Q6H PRN Pain, Moderate (4-6) Potassium Chloride 40 meq 12/18/21 17:00 Potassium Chloride Er 20 Meq Tab PO 12/19/21 16:59 ONCE@1000 NR Sodium Chloride 10 ml 12/13/21 22:00 12/18/21 14:51 Sodium Chloride 0.9% 10 Ml Flush Syringe IV 10 ml BID ERNESTO Administration Sodium Chloride 10 ml 12/13/21 17:29 12/14/21 03:07 Sodium Chloride 0.9% 10 Ml Flush Syringe IV 10 ml PRN PRN Administration LINE FLUSH
[2021-12-18] MEDS: POTASSIUM CHLORIDE ER 20 MEQ TAB PO NR (18:02)
[2021-12-19] MEDS: SODIUM CHLORIDE 0.9% 1000 ML 1,000 ML IV SCH ×5 (02:30→23:11)
[2021-12-19] MEDS: FUROSEMIDE 40 MG/4 ML INJ IV SCH ×2 (05:02→18:18)
[2021-12-19 06:27] LABS: Alanine Aminotransferase 300 units/L (7-56); Albumin 3.9 g/dL (3.9-5)
[2021-12-19 06:33] LABS: Bilirubin,Direct < 0.2 mg/dL (0-0.2)
[2021-12-19] MEDS: POTASSIUM CHLORIDE ER 20 MEQ TAB PO NR (09:54)
[2021-12-19] MEDS: HEPARIN 5,000 UNIT/1 ML VIAL SUB-Q SCH ×2 (09:56→23:13)
--- NOTE | 2021-12-19 11:49 | Progress Note ---
Assessment and Plan Assessment and plan: Rhabdomyolysis Elevated LFTs 12/16/2021. Patient still with significantly elevated CK levels of 74K. Continue IV fluid hydration and monitor closely. Patient noted slight increased LFTs currently but no labs to suggest acute liver failure. Acute hepatitis negative. Other liver serologies pending 12/17/2021. CK levels improved to the 30,000 range. 12/18/2021. CK levels have improved to 16,000 range. LFTs continue to improve as well. Recheck labs in a.m. 12/19/2021. CK levels have improved to 10,000 range. LFTs also improving. Anticipate discharge when CK levels <4000 History Interval history: No new issues overnight Hospitalist Physical - Constitutional Vitals: Temp Pulse Resp BP Pulse Ox 98.1 F 77 16 108/68 98 12/18/21 04:34 12/18/21 04:34 12/19/21 03:00 12/18/21 04:34 12/19/21 03:00 General appearance: Present: no acute distress, well-nourished - EENT Eyes: Present: PERRL, EOM intact ENT: hearing intact, clear oral mucosa, dentition normal - Neck Neck: Present: supple, normal ROM - Respiratory Respiratory effort: normal Respiratory: bilateral: CTA - Cardiovascular Rhythm: regular Heart Sounds: Present: S1 & S2. Absent: gallop, rub - Extremities Extremities: no ischemia, No edema, Full ROM - Abdominal General gastrointestinal: soft, non-tender, non-distended, normal bowel sounds - Integumentary Integumentary: Present: clear, warm, dry - Neurologic Neurologic: CNII-XII intact, moves all extremities Results - Labs CBC & Chem 7: 12/18/21 05:35 12/18/21 05:35 Labs: Laboratory Last Values WBC 7.0 K/mm3 (4.5-11.0) 12/18/21 05:35 RBC 4.34 M/mm3 (3.65-5.03) 12/18/21 05:35 Hgb 12.2 gm/dl (10.1-14.3) 12/18/21 05:35 Hct 36.1 % (30.3-42.9) 12/18/21 05:35 MCV 83 fl (79-97) 12/18/21 05:35 MCH 28 pg (28-32) 12/18/21 05:35 MCHC 34 % (30-34) 12/18/21 05:35 RDW 12.7 % (13.2-15.2) L 12/18/21 05:35 Plt Count 212 K/mm3 (140-440) 12/18/21 05:35 Lymph % (Auto) 46.1 % (13.4-35.0) H 12/18/21 05:35 [place] % (Auto) 5.1 % (0.0-7.3) 12/18/21 05:35 Eos % (Auto) 2.5 % (0.0-4.3) 12/18/21 05:35 Baso % (Auto) 0.9 % (0.0-1.8) 12/18/21 05:35 Lymph # (Auto) 3.2 K/mm3 (1.2-5.4) 12/18/21 05:35 [place] # (Auto) 0.4 K/mm3 (0.0-0.8) 12/18/21 05:35 Eos # (Auto) 0.2 K/mm3 (0.0-0.4) 12/18/21 05:35 Baso # (Auto) 0.1 K/mm3 (0.0-0.1) 12/18/21 05:35 Seg Neutrophils % 45.4 % (40.0-70.0) 12/18/21 05:35 Seg Neutrophils # 3.2 K/mm3 (1.8-7.7) 12/18/21 05:35 Sodium 139 mmol/L (137-145) 12/18/21 05:35 Potassium 3.4 mmol/L (3.6-5.0) L 12/18/21 05:35 Chloride 108.3 mmol/L (98-107) H 12/18/21 05:35 Carbon Dioxide 25 mmol/L (22-30) 12/18/21 05:35 Anion Gap 9 mmol/L 12/18/21 05:35 BUN 7 mg/dL (7-17) 12/18/21 05:35 Creatinine 0.5 mg/dL (0.6-1.2) L 12/18/21 05:35 Estimated GFR > 60 ml/min 12/18/21 05:35 BUN/Creatinine Ratio 14 % 12/18/21 05:35 Glucose 91 mg/dL (65-100) 12/18/21 05:35 Calcium 8.6 mg/dL (8.4-10.2) 12/18/21 05:35 Ferritin 80.5 ng/mL (10.0-200.0) 12/15/21 04:36 Total Bilirubin 0.30 mg/dL (0.1-1.2) 12/19/21 05:13 Direct Bilirubin < 0.2 mg/dL (0-0.2) 12/19/21 05:13 Indirect Bilirubin 0.1 mg/dL 12/19/21 05:13 AST 172 units/L (5-40) H 12/19/21 05:13 ALT 300 units/L (7-56) H 12/19/21 05:13 Alkaline Phosphatase 57 units/L (35-129) 12/19/21 05:13 Total Creatine Kinase 85762 units/L (30-135) H 12/19/21 05:13 Total Protein 6.8 g/dL (6.3-8.2) 12/19/21 05:13 Albumin 3.9 g/dL (3.9-5) 12/19/21 05:13 Albumin/Globulin Ratio 1.3 % 12/19/21 05:13 Urine Color Straw (Yellow) 12/13/21 Unknown Urine Turbidity Clear (Clear) 12/13/21 Unknown Urine pH 7.0 (5.0-7.0) 12/13/21 Unknown Ur Specific [place] 1.001 (1.003-1.030) L 12/13/21 Unknown Urine Protein 30 mg/dl mg/dL (Negative) 12/13/21 Unknown Urine Glucose (UA) Neg mg/dL (Negative) 12/13/21 Unknown Urine Ketones Neg mg/dL (Negative) 12/13/21 Unknown Urine Blood Lg (Negative) 12/13/21 Unknown Urine Nitrite Neg (Negative) 12/13/21 Unknown Urine Bilirubin Neg (Negative) 12/13/21 Unknown Urine Urobilinogen < 2.0 mg/dL (<2.0) 12/13/21 Unknown Ur Leukocyte Esterase Neg (Negative) 12/13/21 Unknown Urine WBC (Auto) 1.0 /HPF (0.0-6.0) 12/13/21 Unknown Urine RBC (Auto) 1.0 /HPF (0.0-6.0) 12/13/21 Unknown U Epithel Cells (Auto) < 1.0 /HPF (0-13.0) 12/13/21 Unknown Urine Mucus Few /HPF 12/13/21 Unknown Urine Opiates Screen Negative 12/15/21 11:30 Urine Methadone Screen Negative 12/15/21 11:30 Ur Barbiturates Screen Negative 12/15/21 11:30 Ur Phencyclidine Scrn Negative 12/15/21 11:30 Ur Amphetamines Screen Negative 12/15/21 11:30 U Benzodiazepines Scrn Negative 12/15/21 11:30 Urine Cocaine Screen Negative 12/15/21 11:30 U Marijuana (THC) Screen Negative 12/15/21 11:30 Drugs of Abuse Note Disclamer 12/15/21 11:30 Hepatitis A IgM Ab Non-reactive (NonReactive) 12/14/21 11:41 Hep Bs Antigen Non-reactive (Negative) 12/14/21 11:41 Hep B Core IgM Ab Non-reactive (NonReactive) 12/14/21 11:41 Hepatitis C Antibody Non-reactive (NonReactive) 12/14/21 11:41 [place]/IV: Voiding Method Toilet Active Medications - Current Medications Current Medications: Generic Name Dose Route Start Last Admin Trade Name Freq PRN Reason Stop Dose Admin Acetaminophen 650 mg 12/13/21 17:29 12/14/21 07:09 Acetaminophen 325 Mg Tab PO 650 mg Q4H PRN Administration Pain MILD(1-3)/Fever >100.5/[place] Furosemide 40 mg 12/14/21 20:00 12/19/21 05:02 Furosemide 40 Mg/4 Ml Inj IV 40 mg 0600,1800 ERNESTO Administration Heparin Sodium (Porcine) 5,000 unit 12/13/21 22:00 12/19/21 09:56 Heparin 5,000 Unit/1 Ml Vial SUB-Q 5,000 unit Q12HR ERNESTO Administration Hydromorphone HCl 0.5 mg 12/13/21 17:29 Hydromorphone 0.5 Mg/0.5 Ml Inj IV Q3H PRN Pain , Severe (7-10) Sodium Chloride 1,000 mls @ 200 mls/hr 12/17/21 09:00 12/19/21 07:44 Nacl 0.9% 1000 Ml IV 200 mls/hr DIRECT ERNESTO Administration Metoclopramide HCl 10 mg 12/13/21 17:29 Metoclopramide 10 Mg/2 Ml Inj IV Q6H PRN Nausea And Vomiting Morphine Sulfate 2 mg 12/13/21 17:29 Morphine 2 Mg/1 Ml Inj IV Q4H PRN Pain, Moderate (4-6) Ondansetron HCl 4 mg 12/13/21 17:29 Ondansetron 4 Mg/2 Ml Inj IV Q3H PRN Nausea And Vomiting Oxycodone/Acetaminophen 1 tab 12/13/21 17:29 Oxycodone /Acetaminophen 5-325mg Tab PO Q6H PRN Pain, Moderate (4-6) Potassium Chloride 40 meq 12/18/21 17:00 12/19/21 09:54 Potassium Chloride Er 20 Meq Tab PO 12/19/21 16:59 40 meq ONCE@1000 NR Administration Sodium Chloride 10 ml 12/13/21 22:00 12/19/21 09:57 Sodium Chloride 0.9% 10 Ml Flush Syringe IV 10 ml BID ERNESTO Administration Sodium Chloride 10 ml 12/13/21 17:29 12/14/21 03:07 Sodium Chloride 0.9% 10 Ml Flush Syringe IV 10 ml PRN PRN Administration LINE FLUSH Nutrition/Malnutrition Assess - Dietary Evaluation Nutrition/Malnutrition Findings: Nutrition Notes Start: 12/19/21 10:32 Freq: Status: Active Protocol: Document 12/19/21 10:32 OMARI (Rec: 12/19/21 10:35 OMARI [id number]) Nutrition Notes Need for Assessment generated from: LOS Initial or Follow up Brief Note Other Pertinent Diagnosis Rhabdomyolysis, Elevated LFTs Current Diet Regular Height 5 ft 4 in Weight 65.771 kg [place] Body Weight (kg) 54.54 BMI 24.9 Weight Status Appropriate Subjective/Other Information Pt screened for LOS. She has consumed 72% of meals since admission. Percent of energy/protein needs met: 92% energy 100% pro Burn Absent Trauma Absent Current % PO Fair (50-74%) Minimum of two criteria No Is patient on ventilator? No Is Patient Ambulatory and/or Out of Bed Yes REE-([place] Jeor-ambulatory/OOB) [ 1797.523 [id number]] Calculation Used for Recommendations [place] Jeor Additional Notes Pro needs 0.8-1g/k-66g/ day Fluid needs 1ml/kcal Nutrition Intervention Revisit per MD consult or patient Sign Off request:
--- NOTE | 2021-12-19 12:06 | Progress Note ---
Assessment and Plan - Patient Problems (1) Rhabdomyolysis Current Visit: Yes Status: Acute Qualifiers: Rhabdomyolysis type: traumatic Encounter type: initial encounter Qualified Code(s): T79.6XXA - Traumatic ischemia of muscle, initial encounter Plan to address problem: Renal function remains stable at this time, CPK trending down on IVF. Stable for discharge from renal stand point (2) Transaminitis Current Visit: Yes Status: Acute Plan to address problem: 2/2 acute rhabdomyolysis. trend LFTs on IVF Subjective Date of service: 12/19/21 Principal diagnosis: Rhabdomyolysis Interval history: Patient is awake alert, in no acute distress, remains on IV NS Objective - Vital Signs Vital signs: Vital Signs - 12hr 12/19/21 03:00 Respiratory 16 Rate O2 Sat by Pulse 98 Oximetry - General Appearance General appearance: well-developed, well-nourished, appears stated age EENT: ATNC, PERRL, mucous membranes moist Neck: no JVD Respiratory: Present: Clear to Ascultation Cardiology: regular, S1S2 Gastrointestinal: normoactive bowel sounds Integumentary: no rash Neurologic: no focal deficit, alert and oriented x3, strength 5/5, CN 3-12 intact Psychiatric: mood/affect appropriate, cooperative - Lab 12/18/21 05:35 12/18/21 05:35 Most recent lab results Calcium 8.6 mg/dL (8.4-10.2) 12/18/21 05:35 Medications & Allergies - Medications Allergies/Adverse Reactions: Allergies No Known Allergies Allergy (Verified 12/15/21 08:52) Home Medications: Home Medications Medication Instructions Recorded Confirmed Last Taken Type Norethindrone-E.estradiol-Iron 1 tab PO DAILY 12/14/21 12/15/21 12/14/21 History [Junel Fe 1 mg-20 Mcg Tablet] Clobetasol Propionate [Temovate] 1 applic TP PRN PRN 12/15/21 12/15/21 12/14/21 History Active Medications: Generic Name Dose Route Start Last Admin Trade Name Freq PRN Reason Stop Dose Admin Acetaminophen 650 mg 12/13/21 17:29 12/14/21 07:09 Acetaminophen 325 Mg Tab PO 650 mg Q4H PRN Administration Pain MILD(1-3)/Fever >100.5/[place] Furosemide 40 mg 12/14/21 20:00 12/19/21 05:02 Furosemide 40 Mg/4 Ml Inj IV 40 mg 0600,1800 ERNESTO Administration Heparin Sodium (Porcine) 5,000 unit 12/13/21 22:00 12/19/21 09:56 Heparin 5,000 Unit/1 Ml Vial SUB-Q 5,000 unit Q12HR ERNESTO Administration Hydromorphone HCl 0.5 mg 12/13/21 17:29 Hydromorphone 0.5 Mg/0.5 Ml Inj IV Q3H PRN Pain , Severe (7-10) Sodium Chloride 1,000 mls @ 200 mls/hr 12/17/21 09:00 12/19/21 07:44 Nacl 0.9% 1000 Ml IV 200 mls/hr DIRECT ERNESTO Administration Metoclopramide HCl 10 mg 12/13/21 17:29 Metoclopramide 10 Mg/2 Ml Inj IV Q6H PRN Nausea And Vomiting Morphine Sulfate 2 mg 12/13/21 17:29 Morphine 2 Mg/1 Ml Inj IV Q4H PRN Pain, Moderate (4-6) Ondansetron HCl 4 mg 12/13/21 17:29 Ondansetron 4 Mg/2 Ml Inj IV Q3H PRN Nausea And Vomiting Oxycodone/Acetaminophen 1 tab 12/13/21 17:29 Oxycodone /Acetaminophen 5-325mg Tab PO Q6H PRN Pain, Moderate (4-6) Potassium Chloride 40 meq 12/18/21 17:00 12/19/21 09:54 Potassium Chloride Er 20 Meq Tab PO 12/19/21 16:59 40 meq ONCE@1000 NR Administration Sodium Chloride 10 ml 12/13/21 22:00 12/19/21 09:57 Sodium Chloride 0.9% 10 Ml Flush Syringe IV 10 ml BID ERNESTO Administration Sodium Chloride 10 ml 12/13/21 17:29 12/14/21 03:07 Sodium Chloride 0.9% 10 Ml Flush Syringe IV 10 ml PRN PRN Administration LINE FLUSH
[2021-12-19 13:07] LABS: ANA Screen, IFA Negative (Negative)
[2021-12-20] MEDS: SODIUM CHLORIDE 0.9% 1000 ML 1,000 ML IV SCH ×2 (05:03→09:22)
[2021-12-20] MEDS: FUROSEMIDE 40 MG/4 ML INJ IV SCH (07:04)
[2021-12-20] MEDS: HEPARIN 5,000 UNIT/1 ML VIAL SUB-Q SCH (09:25)
--- NOTE | 2021-12-20 10:28 | Progress Note ---
Assessment and Plan - Patient Problems (1) Rhabdomyolysis Current Visit: Yes Status: Acute Qualifiers: Rhabdomyolysis type: traumatic Encounter type: initial encounter Qualified Code(s): T79.6XXA - Traumatic ischemia of muscle, initial encounter Plan to address problem: Patient improved CPK is now down to 5000's. Okay to discharge from renal perspective. Emphasized with patient importance of liberal oral fluid intake of water and Gatorade. Follow-up kidney function and CPK in the office next week. (2) Transaminitis Current Visit: Yes Status: Acute Plan to address problem: Secondary to rhabdomyolysis. Improved. Subjective Date of service: 12/20/21 Principal diagnosis: Rhabdomyolysis Interval history: Patient seen lying in bed. She has no complaints. Denies any muscle pain or cramping today. Feels much better and would like to go home Objective - Exam Narrative Exam: Young -[place] female lying in bed in no acute distress HEENT: NCAT, pink oral mucous membrane Neck: Supple, no venous distention CVS: S1S2 RRR with no murmur, rub or gallop Chest: Clear to auscultation Abdomen: Protuberant, soft, nontender, no organomegaly, bowel sounds are present Extremities: No edema Neuro: Awake, alert no focal deficits - Vital Signs Vital signs: Vital Signs - 12hr 12/20/21 01:00 Temperature 97.8 F Pulse Rate 68 Respiratory 16 Rate Blood Pressure 128/68 [Right] O2 Sat by Pulse 99 Oximetry - Lab 12/18/21 05:35 12/18/21 05:35 Most recent lab results Calcium 8.6 mg/dL (8.4-10.2) 12/18/21 05:35 Medications & Allergies - Medications Allergies/Adverse Reactions: Allergies No Known Allergies Allergy (Verified 12/15/21 08:52) Home Medications: Home Medications Medication Instructions Recorded Confirmed Last Taken Type Norethindrone-E.estradiol-Iron 1 tab PO DAILY 12/14/21 12/15/21 12/14/21 History [Junel Fe 1 mg-20 Mcg Tablet] Clobetasol Propionate [Temovate] 1 applic TP PRN PRN 12/15/21 12/15/21 12/14/21 History Active Medications: Generic Name Dose Route Start Last Admin Trade Name Freq PRN Reason Stop Dose Admin Acetaminophen 650 mg 12/13/21 17:29 12/14/21 07:09 Acetaminophen 325 Mg Tab PO 650 mg Q4H PRN Administration Pain MILD(1-3)/Fever >100.5/[place] Furosemide 40 mg 12/14/21 20:00 12/20/21 07:04 Furosemide 40 Mg/4 Ml Inj IV 40 mg 0600,1800 ERNESTO Administration Heparin Sodium (Porcine) 5,000 unit 12/13/21 22:00 12/20/21 09:25 Heparin 5,000 Unit/1 Ml Vial SUB-Q Not Given Q12HR ERNESTO Hydromorphone HCl 0.5 mg 12/13/21 17:29 Hydromorphone 0.5 Mg/0.5 Ml Inj IV Q3H PRN Pain , Severe (7-10) Sodium Chloride 1,000 mls @ 200 mls/hr 12/17/21 09:00 12/20/21 09:22 Nacl 0.9% 1000 Ml IV 200 mls/hr DIRECT ERNESTO Administration Metoclopramide HCl 10 mg 12/13/21 17:29 Metoclopramide 10 Mg/2 Ml Inj IV Q6H PRN Nausea And Vomiting Morphine Sulfate 2 mg 12/13/21 17:29 Morphine 2 Mg/1 Ml Inj IV Q4H PRN Pain, Moderate (4-6) Ondansetron HCl 4 mg 12/13/21 17:29 Ondansetron 4 Mg/2 Ml Inj IV Q3H PRN Nausea And Vomiting Oxycodone/Acetaminophen 1 tab 12/13/21 17:29 Oxycodone /Acetaminophen 5-325mg Tab PO Q6H PRN Pain, Moderate (4-6) Sodium Chloride 10 ml 12/13/21 22:00 12/19/21 23:14 Sodium Chloride 0.9% 10 Ml Flush Syringe IV 10 ml BID ERNESTO Administration Sodium Chloride 10 ml 12/13/21 17:29 12/14/21 03:07 Sodium Chloride 0.9% 10 Ml Flush Syringe IV 10 ml PRN PRN Administration LINE FLUSH
--- NOTE | 2021-12-20 10:51 | Progress Note ---
Assessment and Plan Assessment and plan: Rhabdomyolysis Elevated LFTs 12/16/2021. Patient still with significantly elevated CK levels of 74K. Continue IV fluid hydration and monitor closely. Patient noted slight increased LFTs currently but no labs to suggest acute liver failure. Acute hepatitis negative. Other liver serologies pending 12/17/2021. CK levels improved to the 30,000 range. 12/18/2021. CK levels have improved to 16,000 range. LFTs continue to improve as well. Recheck labs in a.m. 12/19/2021. CK levels have improved to 10,000 range. LFTs also improving. Anticipate discharge when CK levels <4000 12/20/2021. CK levels have improved to 5375. LFTs continue to improve and will be followed up in the AM. Anticipate discharge in a.m. History Interval history: No new issues overnight Hospitalist Physical - Constitutional Vitals: Temp Pulse Resp BP Pulse Ox 97.8 F 68 16 128/68 99 12/20/21 01:00 12/20/21 01:00 12/20/21 01:00 12/20/21 01:00 12/20/21 01:00 General appearance: Present: no acute distress, well-nourished - EENT Eyes: Present: PERRL, EOM intact ENT: hearing intact, clear oral mucosa, dentition normal - Neck Neck: Present: supple, normal ROM - Respiratory Respiratory effort: normal Respiratory: bilateral: CTA - Cardiovascular Rhythm: regular Heart Sounds: Present: S1 & S2. Absent: gallop, rub - Extremities Extremities: no ischemia, No edema, Full ROM - Abdominal General gastrointestinal: soft, non-tender, non-distended, normal bowel sounds - Integumentary Integumentary: Present: clear, warm, dry - Neurologic Neurologic: CNII-XII intact, moves all extremities Results - Labs CBC & Chem 7: 12/18/21 05:35 12/18/21 05:35 Labs: Laboratory Last Values WBC 7.0 K/mm3 (4.5-11.0) 12/18/21 05:35 RBC 4.34 M/mm3 (3.65-5.03) 12/18/21 05:35 Hgb 12.2 gm/dl (10.1-14.3) 12/18/21 05:35 Hct 36.1 % (30.3-42.9) 12/18/21 05:35 MCV 83 fl (79-97) 12/18/21 05:35 MCH 28 pg (28-32) 12/18/21 05:35 MCHC 34 % (30-34) 12/18/21 05:35 RDW 12.7 % (13.2-15.2) L 12/18/21 05:35 Plt Count 212 K/mm3 (140-440) 12/18/21 05:35 Lymph % (Auto) 46.1 % (13.4-35.0) H 12/18/21 05:35 [place] % (Auto) 5.1 % (0.0-7.3) 12/18/21 05:35 Eos % (Auto) 2.5 % (0.0-4.3) 12/18/21 05:35 Baso % (Auto) 0.9 % (0.0-1.8) 12/18/21 05:35 Lymph # (Auto) 3.2 K/mm3 (1.2-5.4) 12/18/21 05:35 [place] # (Auto) 0.4 K/mm3 (0.0-0.8) 12/18/21 05:35 Eos # (Auto) 0.2 K/mm3 (0.0-0.4) 12/18/21 05:35 Baso # (Auto) 0.1 K/mm3 (0.0-0.1) 12/18/21 05:35 Seg Neutrophils % 45.4 % (40.0-70.0) 12/18/21 05:35 Seg Neutrophils # 3.2 K/mm3 (1.8-7.7) 12/18/21 05:35 Sodium 139 mmol/L (137-145) 12/18/21 05:35 Potassium 3.4 mmol/L (3.6-5.0) L 12/18/21 05:35 Chloride 108.3 mmol/L (98-107) H 12/18/21 05:35 Carbon Dioxide 25 mmol/L (22-30) 12/18/21 05:35 Anion Gap 9 mmol/L 12/18/21 05:35 BUN 7 mg/dL (7-17) 12/18/21 05:35 Creatinine 0.5 mg/dL (0.6-1.2) L 12/18/21 05:35 Estimated GFR > 60 ml/min 12/18/21 05:35 BUN/Creatinine Ratio 14 % 12/18/21 05:35 Glucose 91 mg/dL (65-100) 12/18/21 05:35 Calcium 8.6 mg/dL (8.4-10.2) 12/18/21 05:35 Ferritin 80.5 ng/mL (10.0-200.0) 12/15/21 04:36 Total Bilirubin 0.30 mg/dL (0.1-1.2) 12/19/21 05:13 Direct Bilirubin < 0.2 mg/dL (0-0.2) 12/19/21 05:13 Indirect Bilirubin 0.1 mg/dL 12/19/21 05:13 AST 172 units/L (5-40) H 12/19/21 05:13 ALT 300 units/L (7-56) H 12/19/21 05:13 Alkaline Phosphatase 57 units/L (35-129) 12/19/21 05:13 Total Creatine Kinase 5375 units/L (30-135) H 12/20/21 05:31 Total Protein 6.8 g/dL (6.3-8.2) 12/19/21 05:13 Albumin 3.9 g/dL (3.9-5) 12/19/21 05:13 Albumin/Globulin Ratio 1.3 % 12/19/21 05:13 Urine Color Straw (Yellow) 12/13/21 Unknown Urine Turbidity Clear (Clear) 12/13/21 Unknown Urine pH 7.0 (5.0-7.0) 12/13/21 Unknown Ur Specific [place] 1.001 (1.003-1.030) L 12/13/21 Unknown Urine Protein 30 mg/dl mg/dL (Negative) 12/13/21 Unknown Urine Glucose (UA) Neg mg/dL (Negative) 12/13/21 Unknown Urine Ketones Neg mg/dL (Negative) 12/13/21 Unknown Urine Blood Lg (Negative) 12/13/21 Unknown Urine Nitrite Neg (Negative) 12/13/21 Unknown Urine Bilirubin Neg (Negative) 12/13/21 Unknown Urine Urobilinogen < 2.0 mg/dL (<2.0) 12/13/21 Unknown Ur Leukocyte Esterase Neg (Negative) 12/13/21 Unknown Urine WBC (Auto) 1.0 /HPF (0.0-6.0) 12/13/21 Unknown Urine RBC (Auto) 1.0 /HPF (0.0-6.0) 12/13/21 Unknown U Epithel Cells (Auto) < 1.0 /HPF (0-13.0) 12/13/21 Unknown Urine Mucus Few /HPF 12/13/21 Unknown Urine Opiates Screen Negative 12/15/21 11:30 Urine Methadone Screen Negative 12/15/21 11:30 Ur Barbiturates Screen Negative 12/15/21 11:30 Ur Phencyclidine Scrn Negative 12/15/21 11:30 Ur Amphetamines Screen Negative 12/15/21 11:30 U Benzodiazepines Scrn Negative 12/15/21 11:30 Urine Cocaine Screen Negative 12/15/21 11:30 U Marijuana (THC) Screen Negative 12/15/21 11:30 Drugs of Abuse Note Disclamer 12/15/21 11:30 JESSICA Screen Negative (Negative) 12/15/21 04:36 Hepatitis A IgM Ab Non-reactive (NonReactive) 12/14/21 11:41 Hep Bs Antigen Non-reactive (Negative) 12/14/21 11:41 Hep B Core IgM Ab Non-reactive (NonReactive) 12/14/21 11:41 Hepatitis C Antibody Non-reactive (NonReactive) 12/14/21 11:41 [place]/IV: Voiding Method Toilet Active Medications - Current Medications Current Medications: Generic Name Dose Route Start Last Admin Trade Name Freq PRN Reason Stop Dose Admin Acetaminophen 650 mg 12/13/21 17:29 12/14/21 07:09 Acetaminophen 325 Mg Tab PO 650 mg Q4H PRN Administration Pain MILD(1-3)/Fever >100.5/[place] Furosemide 40 mg 12/14/21 20:00 12/20/21 07:04 Furosemide 40 Mg/4 Ml Inj IV 40 mg 0600,1800 ERNESTO Administration Heparin Sodium (Porcine) 5,000 unit 12/13/21 22:00 12/20/21 09:25 Heparin 5,000 Unit/1 Ml Vial SUB-Q Not Given Q12HR ERNESTO Hydromorphone HCl 0.5 mg 12/13/21 17:29 Hydromorphone 0.5 Mg/0.5 Ml Inj IV Q3H PRN Pain , Severe (7-10) Sodium Chloride 1,000 mls @ 200 mls/hr 12/17/21 09:00 12/20/21 09:22 Nacl 0.9% 1000 Ml IV 200 mls/hr DIRECT ERNESTO Administration Metoclopramide HCl 10 mg 12/13/21 17:29 Metoclopramide 10 Mg/2 Ml Inj IV Q6H PRN Nausea And Vomiting Morphine Sulfate 2 mg 12/13/21 17:29 Morphine 2 Mg/1 Ml Inj IV Q4H PRN Pain, Moderate (4-6) Ondansetron HCl 4 mg 12/13/21 17:29 Ondansetron 4 Mg/2 Ml Inj IV Q3H PRN Nausea And Vomiting Oxycodone/Acetaminophen 1 tab 12/13/21 17:29 Oxycodone /Acetaminophen 5-325mg Tab PO Q6H PRN Pain, Moderate (4-6) Sodium Chloride 10 ml 12/13/21 22:00 12/19/21 23:14 Sodium Chloride 0.9% 10 Ml Flush Syringe IV 10 ml BID ERNESTO Administration Sodium Chloride 10 ml 12/13/21 17:29 12/14/21 03:07 Sodium Chloride 0.9% 10 Ml Flush Syringe IV 10 ml PRN PRN Administration LINE FLUSH Nutrition/Malnutrition Assess - Dietary Evaluation Nutrition/Malnutrition Findings: Nutrition Notes Start: 12/19/21 10:32 Freq: Status: Active Protocol: Document 12/19/21 10:32 OMARI (Rec: 12/19/21 10:35 OMARI [email or web address]) Nutrition Notes Need for Assessment generated from: LOS Initial or Follow up Brief Note Other Pertinent Diagnosis Rhabdomyolysis, Elevated LFTs Current Diet Regular Height 5 ft 4 in Weight 65.771 kg [place] Body Weight (kg) 54.54 BMI 24.9 Weight Status Appropriate Subjective/Other Information Pt screened for LOS. She has consumed 72% of meals since admission. Percent of energy/protein needs met: 92% energy 100% pro Burn Absent Trauma Absent Current % PO Fair (50-74%) Minimum of two criteria No Is patient on ventilator? No Is Patient Ambulatory and/or Out of Bed Yes REE-([place]-St. Jeor-ambulatory/OOB) [ 1797.523 [id number]] Calculation Used for Recommendations [place]-St Jeor Additional Notes Pro needs 0.8-1g/k-66g/ day Fluid needs 1ml/kcal Nutrition Intervention Revisit per MD consult or patient Sign Off request:
--- NOTE | 2021-12-20 12:23 | Discharge Summary ---
Providers - Providers Date of Admission: 12/13/21 17:29 Date of discharge: 12/20/21 Attending physician: JOSEPH WOOD 12/14/21 08:12 Consult to Physician [CONS] Routine Comment: Consulting Provider: PHILIP ORR Physician Instructions: Reason For Exam: Severe rhabdomyolysis 12/14/21 08:13 Consult to Physician [CONS] Routine Comment: Consulting Provider: KVNG PAUL Physician Instructions: Reason For Exam: Severe transaminitis/rhabdo Primary care physician: KATY VALENTINO Hospitalization Reason for admission: Rhabdomyolysis Condition: Stable Hospital course: his is a 26 yo F with no significant past medical history who presents to ER with dark colored urine and b/l thigh pain. Patient states that she joined cycling class and on her first session on 12/09/2021 she underwent 45 minutes of intense cycling session. Since then she experienced pain in both the thighs which is worsened over the last 48 hours making it difficult to walk. Patient able to walk but unable to flex at the knees and also at the hips. Labs showed significantly elevated CPK > 100K along with elevated LFTs, UA showed large blood. Patient was admitted with diagnosis below Rhabdomyolysis Elevated LFTs Hospital course: 12/16/2021. Patient still with significantly elevated CK levels of 74K. Contin ue IV fluid hydration and monitor closely. Patient noted slight increased LFTs currently but no labs to suggest acute liver failure. Acute hepatitis negative. Other liver serologies pending 12/17/2021. CK levels improved to the 30,000 range. 12/18/2021. CK levels have improved to 16,000 range. LFTs continue to improve as well. Recheck labs in a.m. 12/19/2021. CK levels have improved to 10,000 range. LFTs also improving. Anticipate discharge when CK levels <4000 12/20/2021. CK levels have improved to 5375. LFTs continue to improve. Nephrology reports patient can be discharged home today. Dedicated discharge time 35 minutes Disposition: 01 HOME / SELF CARE / HOMELESS Final Discharge Diagnosis (Prints w/discharge instructions): Rhabdomyolysis. Elevated LFTs Core Measure Documentation - Palliative Care Palliative Care/ Comfort Measures: Not Applicable - Core Measures Any of the following diagnoses?: none Exam - Constitutional Vitals: Temp Pulse Resp BP Pulse Ox 97.8 F 68 16 128/68 99 12/20/21 01:00 12/20/21 01:00 12/20/21 01:00 12/20/21 01:00 12/20/21 01:00 General appearance: Present: no acute distress, well-nourished - EENT Eyes: Present: PERRL ENT: hearing intact, clear oral mucosa - Neck Neck: Present: supple, normal ROM - Respiratory Respiratory effort: normal Respiratory: bilateral: CTA - Cardiovascular Heart Sounds: Present: S1 & S2. Absent: rub, click - Extremities Extremities: pulses symmetrical, No edema Peripheral Pulses: within normal limits - Abdominal General gastrointestinal: Present: soft, non-tender, non-distended, normal bowel sounds Female genitourinary: Present: normal - Integumentary Integumentary: Present: clear, warm, dry - Musculoskeletal Musculoskeletal: gait normal, strength equal bilaterally - Psychiatric Psychiatric: appropriate mood/affect, intact judgment & insight - Neurologic Neurologic: CNII-XII intact, moves all extremities Plan Activity: advance as tolerated Weight Bearing Status: Weight Bear as Tolerated Diet: regular Follow up with: KATY VALENTINO MD [Primary Care Provider] - 3-5 Days
[2021-12-20 15:22] VITALS: BP 114/79
== END 2021-12-20 16:18 | disposition home or self-care (01) | DRG 566 ==
LOC: ED 07:42 → 3A 17:29
PROVIDERS: ADMIT Internal Medicine; ATTEND Hospitalist
DX: T79.6XXA Traumatic ischemia of muscle, initial encounter (principal); R74.01 Elevation of levels of liver transaminase levels; K72.90 Hepatic failure, unspecified without coma; D75.1 Secondary polycythemia; W18.39XA Other fall on same level, initial encounter; Y93.89 Activity, other specified; Y92.89 Other specified places as the place of occurrence of the external cause; Y99.8 Other external cause status
CPT/HCPCS: 36415; 76700; 80048; 80053; 80074; 80076; 80307; 81001; 82550; 82728; 85025; 86038; G0378; J3490; J1644; J1940; J7030; J7042